=== PATIENT | male | born 1960 | race Hispanic/Latino ===

== ENCOUNTER 2021-03-25 13:28 | Inpatient (IN) | payer BC, MEDICARE ==
--- NOTE | 2021-03-25 09:32 | R.PREADM ---
PRE-ADMISSION SCREENING FORM SCREENING DATE AND TIME 03/24/2021 13:32 (CDT) ANTICIPATED REHAB ADMISSION DATE 03/26/2021 REFERRING FACILITY [facility] REFERRAL DATE AND TIME 03/23/2021 13:32 (CDT) REFERRAL ROOM# J530 ACUTE ADMIT DATE 03/20/2021 Previous Rehabilitation(s): No. ACUTE PLSQL DEVELOPER/DC RYAN Dubois REFERRING PHYSICIAN Dr Bao Alvarado REHAB FACILITY [facility] CLINICAL LIAISON Mena Moore PHYSICIAN REVIEWER Dr. Familia Zeng M.D. MR# [id number] NAME ALANIS ALBARADO ADDRESS [address] [facility] [place]ONE ZIP [id number] DATE OF 1960 AGE 61 SSN# [id number] GENDER male MARITAL STATUS RACE PREF. LANGUAGE (IF NON-SWAZI) Prydeinig, limited Chinese ADMIT FROM 02 - [facility] PRE-HOSPITAL LIVING SETTING 01 - Home (private home/apt. board/care, assisted living, long-term, transitional living) HOME TYPE AND DETAILS Type of home: single family house # of levels in the residence: 1 # of steps to enter the residence: 0 # of steps within the residence: 0 Patient lives at home independently with his . PRE-HOSPITAL LIVING WITH Family/Relatives FAMILY SUPPORT Yes PRIMARY FAMILY CONTACT NAME Baylee Albarado PRIMARY FAMILY CONTACT PHONE PRIMARY FAMILY CONTACT RELATIONSHIP Spouse IS PRIMARY FAMILY CONTACT AUTH. REP.? no 1ST EMERGENCY CONTACT Baylee Albarado 1ST CONTACT PHONE 1ST CONTACT RELATIONSHIP Spouse IS 1ST CONTACT AUTH. REP.? no PHONE 2ND CONTACT ON ADM.? 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 No ANOTHER DEMOCRAT RESPONSIBLE? 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 RISK FOR COMPLICATIONS: - N/A Hypoglycemia Managment Diabetes Management Hemipalegia - Hypertension Hemiparesis SUMMARY OF ACUTE HOSPITALIZATION: Pt. is a 61 yo Right-handed male. On 03/20/2021 Pt. presented to [facility] with sudden onset of left-side weakness. On 03/20/2021 he was admitted to [facility] with diagnosis Infarct in the right Maribel. His impairment category is Stroke 01 - Left Body (Right Brain) (01.1). Pre-morbidly, Pt. was independent/mod-I in Transfers Control, Locomotion, Self-Care, Social Cognition , Communication, and Sphincter Control; and he had good Transfers Control and Locomotion. Currently, he has deficits of Transfers Control, Safety Awareness, Locomotion, Balance, Self-Care, So cial Cognition, and Communication. Pt. is now referred to [facility] for acute in-patient rehabilitation in order to maximize patient's functional independence in activities of daily living, strength, ROM, and mobi lity. Patient has realistic goal of being discharged at assistance level 6-Shayan to reside at Home with Fam chantelle/Relatives. PAST MEDICAL HISTORY HTN Diabetes MEDICATION ALLERGIES: No Known Drug Allergies (NKDA) ENVIRONMENTAL ALLERGIES: None Known - Substance Allergies None Known - Other Allergies None Known CODE STATUS: Full code WEIGHT/HEIGHT/BMI: WEIGHT 170 lbs HEIGHT 5' 2" BMI 31.1 DIET: - Diet Type Regular - Diet - Solid Texture Regular - Diet - Liquid Texture Regular - Tube Feed N/A REVIEW OF SYSTEMS: - Gen Alert and awake Lying in bed No apparent distress Oriented to: person, time, and place - Vital Signs Vital signs stable, afebrile - CVS RRR VITAL SIGNS Temperature: 98.1 F SBP/DBP: 145/75 Pulse: 79 Resp: 20 Vital signs stable, afebrile MEDICATIONS/TREATMENT: Other- See attached MAR (Medication Administration Record). CURRENT SPHINCTER CONTROL: Pre-hospital bladder status: continent # of bladder accidents in the last 7 days prior to screenin Pre-hospital bowel status: continent # of bowel accidents in the last 7 days prior to screenin CURRENT LOCOMOTION STATUS: distance walked 25 feet DETAILED CURRENT FUNCTIONAL STATUS: - Bladder accident frequency: 7-Ind - No accidents in the past 7 days - Bowel accident frequency: 7-Ind - No accidents in the past 7 days - Walking score based on distance walked: 1(<=50ft) QI SCORES: - Self-Care A. Eating 03-Partial/moderate assistance B. Oral hygiene 03-Partial/moderate assistance C. Toileting hygiene 02-Substantial/maximal assistance E. Shower/bathe self 01-Dependent F. Upper body dressing 03-Partial/moderate assistance G. Lower body dressing 02-Substantial/maximal assistance H. Putting on/taking off footwear - Mobility A. Roll left and right 03-Partial/moderate assistance B. Sit to lying 03-Partial/moderate assistance C. Lying to sitting on side of bed 03-Partial/moderate assistance D. Sit to stand 03-Partial/moderate assistance E. Chair/svd-eb-vjjbl transfer 02-Substantial/maximal assistance F. Toilet transfer 02-Substantial/maximal assistance G. Car transfer 10-Not attempted due to environmental limitations I. Walk 10 feet 02-Substantial/maximal assistance J. Walk 50 feet with two turns 88-Not attempted due to medical condition or safety concerns K. Walk 150 feet 88-Not attempted due to medical condition or safety concerns L. Walking 10 feet on uneven surfaces 88-Not attempted due to medical condition or safety concerns M. 1 step (curb) 88-Not attempted due to medical condition or safety concerns N. 4 steps 88-Not attempted due to medical condition or safety concerns O. 12 steps 88-Not attempted due to medical condition or safety concerns P. Picking up object 88-Not attempted due to medical condition or safety concerns - Bladder and Bowel Bladder continence 0-Always continent Bowel continence 0-Always continent - Endurance Poor - Balance Poor - Safety Awareness Poor CURRENT FUNC. DEFICITS: Self-Care, Mobility, Endurance, Balance, and Safety Awareness HISTORY OF FALLS. HAS THE PATIENT HAD TWO OR MORE FALLS IN THE PAST YEAR OR ANY FALL WITH INJURY IN T HE PAST YEAR?: No PRIOR SURGERY. DID THE PATIENT HAVE MAJOR SURGERY DURING THE 100 DAYS PRIOR TO ADMISSION?: No THERAPY NOTES FROM ACUTE CARE: Attached. alanis [id number] (1).pdf SPECIAL NEEDS: - Safety Concerns Skin breakdown precautions needed due to skin breakdown risk PRECAUTIONS: - Weight Bearing Precaution WBAT left LE PATIENT NEEDS ACTIVE AND ONGOING THERAPEUTIC INTERVENTION OF MULTIPLE THERAPY DISCIPLINES, INCLUDING: - Occupational Therapy Cognitive Retraining. Visual Perceptual Training. - Dietary and Nutrition Adequate Nutrition. Nutritional Education. Nutritional Supplements. - Speech Therapy Cognitive Training. Expressive Language Skills. Memory Strategies. Receptive Language Skills. Speech Intelligibility Training. PATIENT NEEDS CLOSE MEDICAL SUPERVISION BY A REHABILITATION PHYSICIAN FOR: Coordination of Treatment Team PATIENT REQUIRES 24X7 REHAB NURSING FOR MEDICAL AND FUNCTIONAL MGT. OF THE FOLLOWING DEFICITS: Disease Management Medication Management Patient/Family Education Providing Safe Environment PATIENT REQUIRES INTENSIVE, COORDINATED INTERDISCIPLINARY APPROACH TO REHAB: Arranging Home Equipment/Services Discharge Planning Family Intervention/Training Aoc Airspace Control Officer/Case Management PATIENT REHAB POTENTIAL: Rosa ALBARADO is able and expected to receive 3 hours of individualized therapy daily on at least 5 of e very 7 days Rosa ALBARADO's prognosis for significant practical improvement within a reasonable period of time appea rs Good Expected level of measurable improvement will be of a practical value to Rosa ALBARADO's functional capa city or adaptations to impairments Has a viable Discharge Plan Medically appropriate; condition is sufficiently stable to participate in intensive rehab program DISCHARGE PLAN: - Estimated Length of Stay (days) 17. - Consensus on plan Discharge plan has not been discussed with primary caregiver. Patient/Family is in agreement with the plan. - Patient/Family Goals Return home with assistance. - Planned Living Setting Upon Discharge Home, to live with Family/Relatives. - N/A Patient is a 61 year old male that presented to [place] with L side affect. He has a history of Diab etes and HTN. He was attempting to lift an object at home when he started having a left sided facial droop and nausea. He was life-flighted to [place]. He is expected to be seen by Dr Zeng at [facility] 3 times per week, have 24 hour nursing and supervision. He will participate in at least 15 hours p er week of acute therapy. (3 hours x 5 days) We expect the patient to discharge in approximately 18 days, home with his family and will participate in outpatient therapy. RECOMMENDED CARE LEVEL: IRF RECOMMENDATION DETAILS: Recommended Admission to Comprehensive Rehabilitation Program to Increase Functional [place] SCREENER'S COMPLETENESS CONFIRMATION: - Screening Confirmation The patient data collection on this preadmission screening form is finished PHYSICIANS REVIEW AND ADMISSION DETERMINATION Admit - Based on my review of the Pre-Admission Screening results, in my medical judgment and experie nce, I concur with the findings and recommend admission to [facility], as this patient requires an IRF level of care. SIGNATURE PANEL: Asphalt Paving Foreman - [electronically] signed by Mago Rice, Garment Inspector on 03/24/2021 at 14:46 (CD T) Clinical Liaison - [electronically] signed by Mena Moore OT on 03/24/2021 at 15:07 (CDT) Physician Reviewer - [electronically] signed by Dr. Familia Zeng M.D. on 03/25/2021 at 09:32 (CDT )
[2021-03-25] MEDS ORDERED: D50W 25 GM/50 ML VIAL IV PRN ×2 (13:58→14:19)
[2021-03-25] MEDS ORDERED: GLUCAGON 1 MG/VIAL IM PRN ×2 (14:00→14:05)
[2021-03-25] MEDS: INSULIN -REGULAR HUMAN 50 UNIT/0.5 ML ML SQ SCH ×2 (16:52→20:04)
[2021-03-25] MEDS: carvediloL 3.125 MG TAB PO SCH (16:53)
[2021-03-25] MEDS: METFORMIN HCL 500 MG TAB PO SCH (16:54)
--- NOTE | 2021-03-25 18:48 | R.HP ---
HISTORY AND PHYSICAL FACILITY: [facility] ENCOUNTER DATE AND TIME: 03/25/2021 18:41 (CDT) MR#: [id number] NAME ABBY BO ADDRESS: [address] CITY: [place]IP [address] PHONE: DATE OF : 1960 AGE: 61 SSN# [id number] GENDER: Male DEXTERITY Right-handed MARITAL STATUS RACE PRE-HOSPITAL LIVING SETTING 01 - Home (private home/apt. board/care, assisted living, fdc, transitional living) PRE-HOSPITAL LIVING WITH Family/Relatives ENCOUNTER PHYSICIAN: Dr. Familia Zeng M.D. REFERRING DOCTOR: Dr Bao Alvarado DATE OF ADMISSION: 03/25/2021 18:41 (CDT) REFERRING FACILITY [facility] HOME TYPE AND DETAILS: Type of home: single family house # of levels in the residence: 1 # of steps to enter the residence: 0 # of steps within the residence: 0 Patient lives at home independently with his . ONSET DATE: 03/20/2021 PRIMARY DIAGNOSIS-RELATED SURGERIES: No surgeries related to the primary diagnosis were performed. HISTORY OF PRESENT ILLNESS (HPI): Pt. is a 61 yo Right-handed male. On 03/20/2021 Pt. presented to [facility] with sudden onset of left-side weakness. On 03/20/2021 he was admitted to [facility] with diagnosis Infarct in the right Maribel. His impairment category is Stroke 01 - Left Body (Right Brain) (01.1). Pre-morbidly, Pt. was independent/mod-I in Transfers Control, Locomotion, Self-Care, Social Cognition , Communication, and Sphincter Control; and he had good Transfers Control and Locomotion. Currently, he has deficits of Transfers Control, Safety Awareness, Locomotion, Balance, Self-Care, So cial Cognition, and Communication. Pt. is now referred to [facility] for acute in-patient rehabilitation in order to maximize patient's functional independence in activities of daily living, strength, ROM, and mobi lity. Patient has realistic goal of being discharged at assistance level 6-Shayan to reside at Home with Fam chantelle/Relatives. MEDICATION ALLERGIES: No Known Drug Allergies (NKDA) ENVIRONMENTAL ALLERGIES: None Known - Substance Allergies None Known - Other Allergies None Known PAST MEDICAL HISTORY: HTN Diabetes SOCIAL HISTORY: - Home Living Family/Relatives REVIEW OF SYSTEMS: - Gen No Chills Fatigue No Fever - Eyes No Double Vision No itchiness - ENMT No Difficulty Swallowing - CVS No Chest Discomfort No Chest Pain No Fatigue No Weight Gain - Resp No Cough No Shortness of Breath - GI Continent No Abdominal Pain No Constipation No Diarrhea - Continent No Kidney Pain No Painful Urination No Urinary Urgency - MSK No Joint Pain Muscle Cramps Stiffness - Skin No Itching No Rash No Suspicious Lesions - Neuro Coordination Difficulty No Difficulty with Concentration No Memory Loss No Seizures Weakness - Psych No Anxiety No Depression No HIV Exposure No Persistent Infections No Seasonal Allergies - Endo No Cold/Heat Intolerance No Excessive Hunger No Excessive Thirst No Excessive Urination PHYSICAL EXAM - Gen Alert and awake Lying in bed No apparent distress Oriented to: person, time, and place - Skin No breakdown Normacephalic - Eyes No abnormalities - ENMT No abnormalities - Neck No abnormalities - CVS RRR - Chest Clear - Abd + bowel sounds - GI Soft Deferred - No abnormalities - Ext no edema - MSK 3-4/5 weakness in left lower extremity. - Neuro 3-4/5 strength left lower extremity. - Psych No abnormalities VITAL SIGNS Temperature: 97.7 F SBP/DBP: 143/63 Pulse: 70 Resp: 16 NURSING: - Shower allowing shower - Bladder care per protocol - Skin care per protocol PRECAUTIONS: - Weight Bearing Precaution WBAT left LE ACTIVITIES OOB only with supervision QI SCORES: - Self-Care A. Eating 03-Partial/moderate assistance B. Oral hygiene 03-Partial/moderate assistance C. Toileting hygiene 02-Substantial/maximal assistance E. Shower/bathe self 01-Dependent F. Upper body dressing 03-Partial/moderate assistance G. Lower body dressing 02-Substantial/maximal assistance H. Putting on/taking off footwear - Mobility A. Roll left and right 03-Partial/moderate assistance B. Sit to lying 03-Partial/moderate assistance C. Lying to sitting on side of bed 03-Partial/moderate assistance D. Sit to stand 03-Partial/moderate assistance E. Chair/lkt-vy-ijgiz transfer 02-Substantial/maximal assistance F. Toilet transfer 02-Substantial/maximal assistance G. Car transfer 10-Not attempted due to environmental limitations I. Walk 10 feet 02-Substantial/maximal assistance J. Walk 50 feet with two turns 88-Not attempted due to medical condition or safety concerns K. Walk 150 feet 88-Not attempted due to medical condition or safety concerns L. Walking 10 feet on uneven surfaces 88-Not attempted due to medical condition or safety concerns M. 1 step (curb) 88-Not attempted due to medical condition or safety concerns N. 4 steps 88-Not attempted due to medical condition or safety concerns O. 12 steps 88-Not attempted due to medical condition or safety concerns P. Picking up object 88-Not attempted due to medical condition or safety concerns - Bladder and Bowel Bladder continence 0-Always continent Bowel continence 0-Always continent - Endurance Poor - Balance Poor - Safety Awareness Poor CURRENT FUNC. DEFICITS: Self-Care, Mobility, Endurance, Balance, and Safety Awareness MEDICATIONS: - Other See attached MAR (Medication Administration Record) ASSESSMENT: Pt. is a 61 yo Right-handed male.On 03/20/2021 Pt. presented to [facility] with sudd en onset of left-side weakness.On 03/20/2021 he was admitted to [facility] with diagnosis Inf arct in the right Maribel.His impairment category is Stroke 01 - Left Body (Right Brain) (01.1).Pre-mor bidly, Pt. was independent/mod-I in Transfers Control, Locomotion, Self-Care, Social Cognition, Commu nication, and Sphincter Control; and he had good Transfers Control and Locomotion.Currently, he has d eficits of Transfers Control, Safety Awareness, Locomotion, Balance, Self-Care, Social Cognition, and Communication.Pt. is now referred to [facility] for acute in-patient rehabili tation in order to maximize patient's functional independence in activities of daily living, strength , ROM, and mobility.- Rehab Goal Patient has realistic goal of being discharged at assistance level 6-Shayan to reside at Home with Fam chantelle/Relatives. REHAB PLAN: for Dementia, TBI, Stroke, or others - Physical Therapy Gait dysfunction - to improve, our physical therapists will perform initial evaluation of pt's status upon admission and devise an individualized program for Gait Training, and Wheel Chair mobility Inability to transfer - to improve, our physical therapists will perform initial evaluation of pt's s tatus upon admission and devise an individualized program for Bed mobility Need for home safety evaluation - to improve, our physical therapists will perform initial evaluation of pt's status upon admission and devise an individualized program for Home Evaluation Need in caregiver upon discharge - to improve, our physical therapists will perform initial evaluatio n of pt's status upon admission and devise an individualized program for Caregiver Training New precaution - to improve, our physical therapists will perform initial evaluation of pt's status u edel admission and devise an individualized program for Patient precaution education Poor balance - to improve, our physical therapists will perform initial evaluation of pt's status upo n admission and devise an individualized program for Balance Training Weakness - to improve, our physical therapists will perform initial evaluation of pt's status upon ad mission and devise an individualized program for Aquatic Therapy, Neuromuscular Reeducation, and Stre ngthening Achieving independence - to improve, our physical therapists will perform initial evaluation of pt's status upon admission and devise an individualized program for Community Reintegration Activities - Occupational Therapy ADL deficits - to improve, our occupation therapists will perform initial evaluation of pt's status u edel admission and devise an individualized program for Bathing, Bed mobility, Community Reintegration , Cooking, Dressing, Eating, Fine Motor Skills, Grooming, Homemaking, Kitchen Mobility, Laundry, Alena ent Education, Safety Awareness, Splinting - Positioning, Transfers(Toilet, Tub, Shower), and Wheel C hair Management Cognitive deficits - to improve, our occupation therapists will perform initial evaluation of pt's st atus upon admission and devise an individualized program for Cognition - orientation Need for menagerie caretaker - to improve, our occupation therapists will perform initial evaluation of pt's s tatus upon admission and devise an individualized program for Caregiver Training Weakness - to improve, our occupation therapists will perform initial evaluation of pt's status upon admission and devise an individualized program for Aquatic Therapy, Balance, Endurance, UE ROM, and U E strengthening MEDICAL PLAN: - Diet Type Start Regular - Diet - Liquid Texture Start Regular - Tube Feed Start N/A - Bladder care per protocol - Weight Bearing Precaution WBAT left LE - Skin care per protocol - Other See attached MAR (Medication Administration Record) - Diet - Solid Texture Regular - Shower shower DISCHARGE PLAN: - Estimated Length of Stay (days) 17. - Consensus on plan Discharge plan has not been discussed with primary caregiver. Patient/Family is in agreement with the plan. - Patient/Family Goals Return home with assistance. - Planned Living Setting Upon Discharge Home, to live with Family/Relatives. - N/A Patient is a 61 year old male that presented to [place] with L side affect. He has a history of Diab etes and HTN. He was attempting to lift an object at home when he started having a left sided facial droop and nausea. He was life-flighted to [place]. He is expected to be seen by Dr Zeng at [facility] 3 times per week, have 24 hour nursing and supervision. He will participate in at least 15 hours p er week of acute therapy. (3 hours x 5 days) We expect the patient to discharge in approximately 18 days, home with his family and will participate in outpatient therapy. SIGNATURE PANEL: (CDT)
--- NOTE | 2021-03-25 18:49 | PAPE ---
POST ADMISSION PHYSICIAN EVALUATION PATIENT: [facility] MR# [id number] REFERRING DOCTOR Dr Bao Alvarado EVALUATION DATE AND TIME 03/25/2021 18:47 (CDT) NAME ABBY BO DATE OF 1960 AGE 61 PHONE SSN# [id number] GENDER male EVALUATING PHYSICIAN Dr. Familia Zeng M.D. ADMISSION DIAGNOSIS: Infarct in the right Maribel ONSET DATE 03/20/2021 POST-ADMISSION FUNCTIONAL/MEDICAL STATUS: - Bladder Same accident frequency: 7-Ind - No accidents in the past 7 days - Bowel Same accident frequency: 7-Ind - No accidents in the past 7 days - Walking Same score based on distance walked: 1(<=50ft) STATUS CHANGE EVALUATION: No change in Functional or Medical Status is identified compared with Pre-Admission screening. PATIENT NEEDS CLOSE MEDICAL SUPERVISION BY A REHABILITATION PHYSICIAN FOR: Coordination of Treatment Team PATIENT REQUIRES 24X7 REHAB NURSING FOR MEDICAL AND FUNCTIONAL MGT. OF THE FOLLOWING DEFICITS: Disease Management Medication Management Patient/Family Education Providing Safe Environment PATIENT REQUIRES INTENSIVE, COORDINATED INTERDISCIPLINARY APPROACH TO REHAB: Arranging Home Equipment/Services Discharge Planning Family Intervention/Training Ground Water Pump Installer/Case Management LIST OF IDENTIFIED AND POTENTIAL PROBLEMS: Alteration in leisure activities Bladder, Incontinence Bowel, Incontinence Infection, Actual or Potential Mobility Impaired Pain, Alteration in Comfort Self Care Deficit Skin Integrity, Actual or Potential Urinary Tract Infection (UTI), Actual or Potential RISK FOR COMPLICATIONS - N/A Hypoglycemia Managment. Diabetes Management. Hemipalegia. - Hypertension Hemiparesis. PATIENT COULD BE AT RISK FOR COMPLICATIONS FROM ADVERSE MEDICAL CONDITIONS DUE TO HIS/HER COMORBIDITI ES AND THE RIGORS OF THE INTENSIVE REHABILLITATION PROGRAM. METHODS OR INTERVENTIONS TO AVOID COMPLIC ATIONS INCLUDE: - Bleeding Stroke patients assessed for lethargy or change in status. - Infection Clinical staff to assess and manage the signs and symptoms of infection including fever, redness, war mth, etc. - Urinary Tract Infection - Aspiration Clinical staff will assess and manage coughing, drooling, congestion. - Falls Patient will be evaluated for Fall Precautions and will be placed on Fall Precautions as indicated pe r protocol. - Skin Breakdown Nursing will assess skin daily using assessment tool and will place on Skin Breakdown Precautions as indicated per protocol. - Pain Clinical staff may employ non-medication methods such as massage, distraction, decrease stimulus, etc . as needed. Clinical staff will assess patient's pain level every shift per protocol to assess and e nsure pain management effectiveness. Medications will be given and the pain level re-assessed. PRELIMINARY PLAN OF CARE: - Physical Therapy Patient needs Physical Therapy for a daily minimum of 1.5 hours at least 5 out of 7 days, to improve: Mobility, Strengthening, Transfers, Stretching, ROM, Endurance, Ability to manage stairs, Gait, and Balance. - Speech Therapy Patient needs Speech Therapy for a daily minimum of 0.5 hours at least 5 out of 7 days, to improve: S wallowing, Cognition, Language Skills, and Compensatory Strategies. - Rehabilitation Nursing Patient requires 24x7 Rehabilitation Nursing for: Pain Issues, Identifying and preventing risk factor s, Monitoring and reporting current medical conditions, Assisting with ambulation and transfer, Kailash ting with all ADL-s, Teaching patients about disease process and medications, Family teaching, Provid ing safe environment, Bowel and Bladder Issues, Skin Integrity, and Medication Management. Patient needs Ground Water Pump Installer and/or Case Management for: Discharge Planning, Arranging Home Equipmen t or Services, and Family Interventions. - Dietary and Nutrition Services Patient needs Dietary and Nutrition Services for: Adequate Nutrition, Nutritional Supplements, and Nu tritional Education. - Occupational Therapy Patient needs Occupational Therapy for a daily minimum of 1.5 hours at least 5 out of 7 days, to impr ove Activities of Daily Living, including: Eating, Grooming, Bathing, Dressing, Toileting, Toilet Tra nsfers, Community Reintegration, Higher functional activities, Adaptive Equipment, Splinting, Househo ld Tasks, and Other activities as determined. QI SCORES: - Self-Care A. Eating 03-Partial/moderate assistance B. Oral hygiene 03-Partial/moderate assistance C. Toileting hygiene 02-Substantial/maximal assistance E. Shower/bathe self 01-Dependent F. Upper body dressing 03-Partial/moderate assistance G. Lower body dressing 02-Substantial/maximal assistance H. Putting on/taking off footwear - Mobility A. Roll left and right 03-Partial/moderate assistance B. Sit to lying 03-Partial/moderate assistance C. Lying to sitting on side of bed 03-Partial/moderate assistance D. Sit to stand 03-Partial/moderate assistance E. Chair/gca-nk-mapzi transfer 02-Substantial/maximal assistance F. Toilet transfer 02-Substantial/maximal assistance G. Car transfer 10-Not attempted due to environmental limitations I. Walk 10 feet 02-Substantial/maximal assistance J. Walk 50 feet with two turns 88-Not attempted due to medical condition or safety concerns K. Walk 150 feet 88-Not attempted due to medical condition or safety concerns L. Walking 10 feet on uneven surfaces 88-Not attempted due to medical condition or safety concerns M. 1 step (curb) 88-Not attempted due to medical condition or safety concerns N. 4 steps 88-Not attempted due to medical condition or safety concerns O. 12 steps 88-Not attempted due to medical condition or safety concerns P. Picking up object 88-Not attempted due to medical condition or safety concerns - Bladder and Bowel Bladder continence 0-Always continent Bowel continence 0-Always continent - Endurance Poor - Balance Poor - Safety Awareness Poor POTENTIAL FUNCTIONAL GOALS FOR PATIENT TO ACHIEVE BY DISCHARGE: - Safety Precaution Patient will remain free from falls or injury at time of discharge. - Bed Mobility Patient will perform bed mobility at 4-Michel level of assistance. - Transfers Patient will complete transfers from bed to chair at 4-Michel level of assistance. - Mobility Patient will ambulate 150 ft with 4-Michel level of assistance with RW. PATIENT REHAB POTENTIAL Rosa BO is able and expected to receive 3 hours of individualized therapy daily on at least 5 of e very 7 days Rosa BO's prognosis for significant practical improvement within a reasonable period of time appea rs Good Expected level of measurable improvement will be of a practical value to Rosa BO's functional capa city or adaptations to impairments Has a viable Discharge Plan Medically appropriate; condition is sufficiently stable to participate in intensive rehab program DISCHARGE PLAN: - Estimated Length of Stay (days) 17. - Consensus on plan Discharge plan has not been discussed with primary caregiver. Patient/Family is in agreement with the plan. - Patient/Family Goals Return home with assistance. - Planned Living Setting Upon Discharge Home, to live with Family/Relatives. - N/A Patient is a 61 year old male that presented to [facility] with L side affect. He has a history of Diab etes and HTN. He was attempting to lift an object at home when he started having a left sided facial droop and nausea. He was life-flighted to [facility]. [facility], have 24 hour nursing and supervision. He will participate in at least 15 hours p er week of acute therapy. (3 hours x 5 days) We expect the patient to discharge in approximately 18 days, home with his family and will participate in outpatient therapy. CONCLUSION ON REHABILITATION NECESSITY: I have evaluated patient's pre-admission functional status and, comparing it to the patient's post-ad mission functional status now, I conclude that the pre-admission assessment was accurate. Patient's c ondition on admission supports the medical necessity of admission to [facility]. It is safe to proceed with patient's therapy program. SIGNATURE PANEL: (CDT)
[2021-03-25] MEDS: NPH (HUMAN) 100 UNITS/ML INSULIN SQ SCH (20:00)
[2021-03-25] MEDS ORDERED: INSULIN ISOPHANE SQ SCH (20:00)
[2021-03-25] MEDS ORDERED: SENOSIDES 8.6 MG TAB PO SCH (20:00)
[2021-03-25] MEDS: POLYETHYL GLY 3350 17 GM/DOSE PO SCH (20:02)
[2021-03-25] MEDS: lisinopriL 20 MG TAB PO SCH (20:03)
[2021-03-25] MEDS: ATORVASTATIN 80 MG TAB PO SCH (20:04)
[2021-03-25] MEDS: APIXABAN 5 MG TABLET PO SCH (20:04)
[2021-03-25] MEDS: MELATONIN 3 MG TABLET PO PRN (20:05)
[2021-03-26] MEDS: carvediloL 3.125 MG TAB PO SCH ×2 (05:38→17:49)
[2021-03-26 06:30] LABS: Absolute Lymphocytes (CBC) 2.5 K/uL (0.7-4.9); Basophils % 0.5 % (0-1.3); Hematocrit 34.9 % (39.6-49.0); Lymphocytes % 26.9 % (15.3-44.8); MPV 8.7 fL (7.6-11.3)
[2021-03-26 06:49] LABS: Albumin 2.6 g/dL (3.4-5.0); BUN Blood Urea Nitrogen 28 mg/dL (7-18); Bicarbonate 27 mmol/L (21-32); Glucose Level 154 mg/dL (74-106); Magnesium 2.3 mg/dL (1.8-2.4); Potassium 4.4 mmol/L (3.5-5.1); Prealbumin 16.7 mg/dL (20-40); Sodium Level 140 mmol/L (136-145)
[2021-03-26] MEDS: INSULIN -REGULAR HUMAN 50 UNIT/0.5 ML ML SQ SCH ×4 (07:30→19:31)
[2021-03-26] MEDS: POLYETHYL GLY 3350 17 GM/DOSE PO SCH ×3 (08:00→20:00)
[2021-03-26] MEDS: METFORMIN HCL 500 MG TAB PO SCH ×2 (08:39→17:48)
[2021-03-26] MEDS: APIXABAN 5 MG TABLET PO SCH ×2 (08:40→19:59)
[2021-03-26] MEDS: NPH (HUMAN) 100 UNITS/ML INSULIN SQ SCH ×2 (08:40→19:59)
[2021-03-26] MEDS: lisinopriL 20 MG TAB PO SCH ×2 (11:34→20:00)
[2021-03-26 17:12] LABS: Urine Appearance CLEAR (Clear); Urine Bilirubin NEGATIVE (Negative); Urine Blood NEGATIVE (Negative); Urine Color YELLOW (Yellow); Urine Glucose TRACE (Negative); Urine Protein 1+ (Negative)
[2021-03-26 18:03] LABS: Urine Bacteria <20 /HPF (NONE SEEN); Urine Mucus LIGHT /HPF (NONE SEEN); Urine RBC NONE SEEN /HPF (NONE SEEN)
[2021-03-26] MEDS: ATORVASTATIN 80 MG TAB PO SCH (19:59)
[2021-03-26] MEDS: MELATONIN 3 MG TABLET PO PRN (19:59)
[2021-03-26] MEDS: cloNIDine HCL 0.1 MG TAB PO PRN (19:59)
[2021-03-27] MEDS: carvediloL 3.125 MG TAB PO SCH ×2 (05:00→16:21)
[2021-03-27] MEDS: INSULIN -REGULAR HUMAN 50 UNIT/0.5 ML ML SQ SCH ×4 (07:30→20:45)
[2021-03-27] MEDS: POLYETHYL GLY 3350 17 GM/DOSE PO SCH ×2 (08:00→20:00)
[2021-03-27] MEDS: METFORMIN HCL 500 MG TAB PO SCH ×2 (08:32→16:20)
[2021-03-27] MEDS: APIXABAN 5 MG TABLET PO SCH ×2 (08:32→20:44)
[2021-03-27] MEDS: NPH (HUMAN) 100 UNITS/ML INSULIN SQ SCH ×2 (08:33→20:45)
[2021-03-27] MEDS: lisinopriL 20 MG TAB PO SCH ×2 (09:37→20:44)
[2021-03-27] MEDS: ATORVASTATIN 80 MG TAB PO SCH (20:45)
[2021-03-27] MEDS: MELATONIN 3 MG TABLET PO PRN (20:46)
[2021-03-28] MEDS: carvediloL 3.125 MG TAB PO SCH ×2 (05:03→16:26)
[2021-03-28] MEDS ORDERED: POLYETHYL GLY 3350 17 GM/DOSE PO PRN (06:42)
[2021-03-28] MEDS: INSULIN -REGULAR HUMAN 50 UNIT/0.5 ML ML SQ SCH ×4 (07:30→20:52)
[2021-03-28] MEDS: ONDANSETRON 4 MG (ODT) TAB PO PRN ×2 (08:18→12:39)
[2021-03-28] MEDS: lisinopriL 20 MG TAB PO SCH ×2 (08:18→20:51)
[2021-03-28] MEDS: FAMOTIDINE 20 MG TAB PO SCH (08:18)
[2021-03-28] MEDS: METFORMIN HCL 500 MG TAB PO SCH ×2 (08:18→16:27)
[2021-03-28] MEDS: APIXABAN 5 MG TABLET PO SCH ×2 (08:18→20:51)
[2021-03-28] MEDS: NPH (HUMAN) 100 UNITS/ML INSULIN SQ SCH ×2 (08:19→20:52)
[2021-03-28] MEDS ORDERED: ONDANSETRON 4 MG (ODT) TAB PO PRN (12:38)
--- NOTE | 2021-03-28 15:50 | FAST ---
[employer] FORM SHIFT START DATE/TIME: 03/28/2021 07:00 (CDT) SHIFT END DATE/TIME: 03/28/2021 19:00 (CDT) NAME ABBY BO DATE OF : 1960 DATE OF ADMISSION: 03/25/2021 18:41 (CDT) PHONE: AGE: 61 N# [id number] GENDER: Male ENCOUNTER PHYSICIAN: Dr. Familia Zeng M.D. ADMISSION DIAGNOSIS: - Stroke 01 - Left Body (Right Brain) (01.1) Infarct in the right Maribel. EATING: EATING - STEP 1: Does the patient complete the activity by him/herself with no assistance (physical, verbal/nonverbal cueing, setup/clean-up)? No. EATING - STEP 2: Does the patient need only setup/clean-up assistance from one helper? Yes. 1. [id number] ADMISSION PERFORMANCE: Setup or clean-up assistance CODE: 05 ORAL HYGIENE: ORAL HYGIENE - STEP 1: Does the patient complete the activity by him/herself with no assistance (physical, verbal/nonverbal cueing, setup/clean-up)? No. ORAL HYGIENE - STEP 2: Does the patient need only setup/clean-up assistance from one helper? Yes. 1. [id number] ADMISSION PERFORMANCE: Setup or clean-up assistance CODE: 05 TOILETING HYGIENE: TOILETING HYGIENE - STEP 1: Does the patient complete the activity by him/herself with no assistance (physical, verbal/nonverbal cueing, setup/clean-up)? No. TOILETING HYGIENE - STEP 2: Does the patient need only setup/clean-up assistance from one helper? No. TOILETING HYGIENE - STEP 3: Does the patient need only verbal/nonverbal cueing or touching/steadying/contact guard assistance fro m one helper? Yes. 1. [id number] ADMISSION PERFORMANCE: Supervision or touching assistance CODE: 04 BATHING: Not assessed/no information CODE: - DRESSING - UPPER BODY: Not assessed/no information CODE: - DRESSING - LOWER BODY: Not assessed/no information CODE: - PUTTING ON/TAKING OFF FOOTWEAR: Not assessed/no information CODE: - ROLL LEFT AND RIGHT: ROLL LEFT AND RIGHT - STEP 1: Does the patient complete the activity by him/herself with no assistance (physical, verbal/nonverbal cueing, setup/clean-up)? No. ROLL LEFT AND RIGHT - STEP 2: Does the patient need only setup/clean-up assistance from one helper? No. ROLL LEFT AND RIGHT - STEP 3: Does the patient need only verbal/nonverbal cueing or touching/steadying/contact guard assistance fro m one helper? Yes. 1. [id number] ADMISSION PERFORMANCE: Supervision or touching assistance CODE: 04 SIT TO LYING: SIT TO LYING - STEP 1: Does the patient complete the activity by him/herself with no assistance (physical, verbal/nonverbal cueing, setup/clean-up)? No. SIT TO LYING - STEP 2: Does the patient need only setup/clean-up assistance from one helper? Yes. 1. [id number] ADMISSION PERFORMANCE: Setup or clean-up assistance CODE: 05 LYING TO SITTING: LYING TO SITTING ON SIDE OF BED - STEP 1: Does the patient complete the activity by him/herself with no assistance (physical, verbal/nonverbal cueing, setup/clean-up)? No. LYING TO SITTING ON SIDE OF BED - STEP 2: Does the patient need only setup/clean-up assistance from one helper? Yes. 1. [id number] ADMISSION PERFORMANCE: Setup or clean-up assistance CODE: 05 SIT TO STAND: SIT TO STAND - STEP 1: Does the patient complete the activity by him/herself with no assistance (physical, verbal/nonverbal cueing, setup/clean-up)? No. SIT TO STAND - STEP 2: Does the patient need only setup/clean-up assistance from one helper? Yes. 1. [id number] ADMISSION PERFORMANCE: Setup or clean-up assistance CODE: 05 TRANSFERS: BED, CHAIR: CHAIR/[id number] TRANSFER - STEP 1: Does the patient complete the activity by him/herself with no assistance (physical, verbal/nonverbal cueing, setup/clean-up)? No. CHAIR/[id number] TRANSFER - STEP 2: Does the patient need only setup/clean-up assistance from one helper? Yes. 1. [id number] ADMISSION PERFORMANCE: Setup or clean-up assistance CODE: 05 TRANSFER TOILET: TOILET TRANSFER - STEP 1: Does the patient complete the activity by him/herself with no assistance (physical, verbal/nonverbal cueing, setup/clean-up)? No. TOILET TRANSFER - STEP 2: Does the patient need only setup/clean-up assistance from one helper? Yes. 1. [id number] ADMISSION PERFORMANCE: Setup or clean-up assistance CODE: 05 TRANSFERS: CAR: Not assessed/no information CODE: - WALK 10 FEET: Not assessed/no information CODE: - 1 STEP (CURB): Not assessed/no information CODE: - PICKING UP OBJECT: Not assessed/no information CODE: - DOES THE PATIENT USE A WHEELCHAIR/SCOOTER? Q1. DOES THE PATIENT USE A WHEELCHAIR/SCOOTER?: Yes CODE: 1 WHEEL 50 FEET WITH TWO TURNS: Not assessed/no information CODE: - INDICATE THE TYPE OF WHEELCHAIR/SCOOTER USED: RR1. INDICATE THE TYPE OF WHEELCHAIR/SCOOTER USED.: Manual CODE: 1 WHEEL 150 FEET: WHEEL 150 FEET - STEP 1: Does the patient complete the activity by him/herself with no assistance (physical, verbal/nonverbal cueing, setup/clean-up)? No. WHEEL 150 FEET - STEP 2: Does the patient need only setup/clean-up assistance from one helper? No. WHEEL 150 FEET - STEP 3: Does the patient need only verbal/nonverbal cueing or touching/steadying/contact guard assistance fro m one helper? Yes. 1. [id number] ADMISSION PERFORMANCE: Supervision or touching assistance CODE: 04 INDICATE THE TYPE OF WHEELCHAIR/SCOOTER USED: SS1. INDICATE THE TYPE OF WHEELCHAIR/SCOOTER USED.: Manual CODE: 1 BLADDER AND BOWEL: H350. BLADDER CONTINENCE (3-DAY ASSESSMENT PERIOD): Always continent (no documented incontinence) CODE: 0 H400. BOWEL CONTINENCE (3-DAY ASSESSMENT PERIOD): Always continent CODE: 0 SIGNATURE PANEL: The following modified sections: 1. [id number] Admission Performance, 1. [id number] Admission Performance, 1. [id number] Admission Performance, 1. [id number] Admission Performance, 1. [id number] Admission Performance, 1. [id number] Admission Performance, 1. [id number] Admission Performance, 1. [id number] Admission Performance , 1. [id number] Admission Performance, 1. [id number] Admission Performance, 1. [id number] Admission Performanc e, 1. [id number] Admission Performance, Q1. Does the patient use a wheelchair/scooter?, Q1. Does the pat ient use a wheelchair/scooter?, RR1. Indicate the type of wheelchair/scooter used., 1. [id number] Admiss ion Performance, Code, SS1. Indicate the type of wheelchair/scooter used., H350. Bladder Continence ( 3-day assessment period), H400. Bowel Continence (3-day assessment period) were [electronically] sign ed by Lucia Engle C.N.A. on MonMar 28 2021 15:49:59 GMT-0500 (Central Daylight Time)
[2021-03-28] MEDS: ATORVASTATIN 80 MG TAB PO SCH (20:51)
[2021-03-28] MEDS: MELATONIN 3 MG TABLET PO PRN (20:52)
[2021-03-29] MEDS: carvediloL 3.125 MG TAB PO SCH ×2 (05:07→17:13)
[2021-03-29] MEDS: INSULIN -REGULAR HUMAN 50 UNIT/0.5 ML ML SQ SCH ×4 (07:30→21:00)
[2021-03-29] MEDS: NPH (HUMAN) 100 UNITS/ML INSULIN SQ SCH ×2 (07:42→20:00)
[2021-03-29] MEDS: FAMOTIDINE 20 MG TAB PO SCH (07:43)
[2021-03-29] MEDS: METFORMIN HCL 500 MG TAB PO SCH ×2 (07:43→17:13)
[2021-03-29] MEDS: lisinopriL 20 MG TAB PO SCH ×2 (07:43→21:10)
[2021-03-29] MEDS: APIXABAN 5 MG TABLET PO SCH ×2 (07:44→21:09)
--- NOTE | 2021-03-29 17:23 | R.PN ---
PROGRESS NOTES ENCOUNTER DATE AND TIME: 03/29/2021 17:17 (CDT) NAME ABBY BO DATE OF : 1960 DATE OF ADMISSION: 03/25/2021 18:41 (CDT) Infarct in the right PonsCHIEF COMPLAINT: Right pontine stroke SUBJECTIVE: Pt denied any depression. Pt denied any Shortness of Breath. CBC with differential is essentially normal. Glucose 121 to 176. UA is normal. Ambulated 70' with maximum assistance using a rolling walker. VITAL SIGNS Temperature: 98.9 F SBP/DBP: 143/73 Pulse: 78 Resp: 16 MEDICATION ALLERGIES: No Known Drug Allergies (NKDA) ENVIRONMENTAL ALLERGIES: None Known - Substance Allergies None Known - Other Allergies None Known NURSING: - Shower allowing shower - Bladder care per protocol - Skin care per protocol PRECAUTIONS: - Weight Bearing Precaution WBAT left LE ACTIVITIES OOB only with supervision THERAPIES: - Occupational Therapy Cognitive Retraining. Visual Perceptual Training. - Dietary and Nutrition Adequate Nutrition. Nutritional Education. Nutritional Supplements. - Speech Therapy Cognitive Training. Expressive Language Skills. Memory Strategies. Receptive Language Skills. Speech Intelligibility Training. PHYSICAL EXAM - Gen Alert and awake Lying in bed No apparent distress Oriented to: person, time, and place - Skin No breakdown Normacephalic - Eyes No abnormalities - ENMT No abnormalities - Neck No abnormalities - CVS RRR - Chest Clear - Abd + bowel sounds - GI Soft Deferred - No abnormalities - Ext no edema - MSK 3-4/5 weakness in left lower extremity. - Neuro 3-4/5 strength left lower extremity. - Psych No abnormalities ASSESSMENT: Pt. is a 61 yo Right-handed male.On 03/20/2021 Pt. presented to [facility] with sudd en onset of left-side weakness.On 03/20/2021 he was admitted to [facility] with diagnosis Inf arct in the right Maribel.His impairment category is Stroke 01 - Left Body (Right Brain) (01.1).Pre-mor bidly, Pt. was independent/mod-I in Transfers Control, Locomotion, Self-Care, Social Cognition, Commu nication, and Sphincter Control; and he had good Transfers Control and Locomotion.Currently, he has d eficits of Transfers Control, Safety Awareness, Locomotion, Balance, Self-Care, Social Cognition, and Communication.Pt. is now referred to [facility] for acute in-patient rehabili tation in order to maximize patient's functional independence in activities of daily living, strength , ROM, and mobility.- Rehab Goal Patient has realistic goal of being discharged at assistance level 6-Shayan to reside at Home with Fam chantelle/Relatives. MDM/PLAN: - Physical Therapy Gait dysfunction - to improve, our physical therapists will perform initial evaluation of pt's statu s upon admission and devise an individualized program for Gait Training, and Wheel Chair mobility Inability to transfer - to improve, our physical therapists will perform initial evaluation of pt's status upon admission and devise an individualized program for Bed mobility Need for home safety evaluation - to improve, our physical therapists will perform initial evaluatio n of pt's status upon admission and devise an individualized program for Home Evaluation Need in caregiver upon discharge - to improve, our physical therapists will perform initial evaluati on of pt's status upon admission and devise an individualized program for Caregiver Training New precaution - to improve, our physical therapists will perform initial evaluation of pt's status upon admission and devise an individualized program for Patient precaution education Poor balance - to improve, our physical therapists will perform initial evaluation of pt's status up on admission and devise an individualized program for Balance Training Weakness - to improve, our physical therapists will perform initial evaluation of pt's status upon a dmission and devise an individualized program for Aquatic Therapy, Neuromuscular Reeducation, and Str engthening Achieving independence - to improve, our physical therapists will perform initial evaluation of pt's status upon admission and devise an individualized program for Community Reintegration Activities - Occupational Therapy ADL deficits - to improve, our occupation therapists will perform initial evaluation of pt's status upon admission and devise an individualized program for Bathing, Bed mobility, Community Reintegratio n, Cooking, Dressing, Eating, Fine Motor Skills, Grooming, Homemaking, Kitchen Mobility, Laundry, Pat ient Education, Safety Awareness, Splinting - Positioning, Transfers(Toilet, Tub, Shower), and Wheel Chair Management Cognitive deficits - to improve, our occupation therapists will perform initial evaluation of pt's s tatus upon admission and devise an individualized program for Cognition - orientation Need for point of care technician - to improve, our occupation therapists will perform initial evaluation of pt's status upon admission and devise an individualized program for Caregiver Training Weakness - to improve, our occupation therapists will perform initial evaluation of pt's status upon admission and devise an individualized program for Aquatic Therapy, Balance, Endurance, UE ROM, and UE strengthening - Other See attached MAR (Medication Administration Record) - Diet Type Continue Regular - Diet - Liquid Texture Continue Regular - Tube Feed Continue N/A - Bladder care per protocol - Weight Bearing Precaution WBAT left LE - Skin care per protocol - Diet - Solid Texture Continue Regular - Shower allowing shower for Dementia, TBI, Stroke, or others FUNCTIONAL STATUS: UPDATED AT WEEKLY TEAM CONFERENCE - Bladder Same accident frequency: 7-Ind - No accidents in the past 7 days - Bowel Same accident frequency: 7-Ind - No accidents in the past 7 days - Walking Same score based on distance walked: 1(<=50ft) FUNCTIONAL STATUS: - Self-Care A. Eating Shayan B. Grooming Michel C. Bathing modA D. Dressing - Upper Michel E. Dressing - Lower modA F. Toileting modA - Sphincter Control G. Bladder control sup H. Bowel control Shayan - Transfers Control I. Bed/Chair/Wheelchair modA J. Toilet Michel K. Tub/Shower modA - Locomotion L. Walk/Wheelchair (B) modA M. Stairs maxA - Communication N. Comprehension (B) sup O. Expression (B) sup - Social Cognition P. Social Interaction Shayan Q. Problem Solving modA R. Memory Michel - Endurance Fair - Balance Poor - Safety Awareness Poor QI SCORES: - Self-Care A. Eating 03-Partial/moderate assistance B. Oral hygiene 03-Partial/moderate assistance C. Toileting hygiene 02-Substantial/maximal assistance E. Shower/bathe self 01-Dependent F. Upper body dressing 03-Partial/moderate assistance G. Lower body dressing 02-Substantial/maximal assistance H. Putting on/taking off footwear - Mobility A. Roll left and right 03-Partial/moderate assistance B. Sit to lying 03-Partial/moderate assistance C. Lying to sitting on side of bed 03-Partial/moderate assistance D. Sit to stand 03-Partial/moderate assistance E. Chair/rcz-lc-doyyd transfer 02-Substantial/maximal assistance F. Toilet transfer 02-Substantial/maximal assistance G. Car transfer 10-Not attempted due to environmental limitations I. Walk 10 feet 02-Substantial/maximal assistance J. Walk 50 feet with two turns 88-Not attempted due to medical condition or safety concerns K. Walk 150 feet 88-Not attempted due to medical condition or safety concerns L. Walking 10 feet on uneven surfaces 88-Not attempted due to medical condition or safety concerns M. 1 step (curb) 88-Not attempted due to medical condition or safety concerns N. 4 steps 88-Not attempted due to medical condition or safety concerns O. 12 steps 88-Not attempted due to medical condition or safety concerns P. Picking up object 88-Not attempted due to medical condition or safety concerns - Bladder and Bowel Bladder continence 0-Always continent Bowel continence 0-Always continent - Endurance Poor - Balance Poor - Safety Awareness Poor CURRENT FUNC. DEFICITS: Self-Care, Mobility, Endurance, Balance, and Safety Awareness SIGNATURE PANEL: (CDT)
[2021-03-29] MEDS: ATORVASTATIN 80 MG TAB PO SCH (21:07)
[2021-03-29] MEDS: MELATONIN 3 MG TABLET PO PRN (21:08)
[2021-03-29] MEDS: ACETAMINOPHEN 325 MG TABLET PO PRN (21:08)
[2021-03-30] MEDS: carvediloL 3.125 MG TAB PO SCH ×2 (05:29→18:31)
[2021-03-30] MEDS: INSULIN -REGULAR HUMAN 50 UNIT/0.5 ML ML SQ SCH ×4 (07:30→19:46)
[2021-03-30] MEDS: NPH (HUMAN) 100 UNITS/ML INSULIN SQ SCH ×2 (07:47→19:45)
[2021-03-30] MEDS: lisinopriL 20 MG TAB PO SCH ×2 (07:48→19:44)
[2021-03-30] MEDS: FAMOTIDINE 20 MG TAB PO SCH (07:48)
[2021-03-30] MEDS: APIXABAN 5 MG TABLET PO SCH ×2 (07:48→19:45)
[2021-03-30] MEDS: METFORMIN HCL 500 MG TAB PO SCH ×2 (07:49→16:29)
--- NOTE | 2021-03-30 18:35 | R.PN ---
PROGRESS NOTES ENCOUNTER DATE AND TIME: 03/30/2021 18:31 (CDT) NAME ABBY BO DATE OF : 1960 DATE OF ADMISSION: 03/25/2021 18:41 (CDT) Infarct in the right PonsCHIEF COMPLAINT: Right pontine stroke SUBJECTIVE: Pt denied any depression. Pt denied any Shortness of Breath. CBC with differential is essentially normal. Glucose 82 to 198. UA is normal. Ambulated 80' with moderate assistance using a rolling walker. Self-propelled wheelchair 250' with st andby assistance. VITAL SIGNS Temperature: 97.6 F SBP/DBP: 147/75 Pulse: 66 Resp: 14 MEDICATION ALLERGIES: No Known Drug Allergies (NKDA) ENVIRONMENTAL ALLERGIES: None Known - Substance Allergies None Known - Other Allergies None Known NURSING: - Shower allowing shower - Bladder care per protocol - Skin care per protocol PRECAUTIONS: - Weight Bearing Precaution WBAT left LE ACTIVITIES OOB only with supervision THERAPIES: - Occupational Therapy Cognitive Retraining. Visual Perceptual Training. - Dietary and Nutrition Adequate Nutrition. Nutritional Education. Nutritional Supplements. - Speech Therapy Cognitive Training. Expressive Language Skills. Memory Strategies. Receptive Language Skills. Speech Intelligibility Training. PHYSICAL EXAM - Gen Alert and awake Lying in bed No apparent distress Oriented to: person, time, and place - Skin No breakdown Normacephalic - Eyes No abnormalities - ENMT No abnormalities - Neck No abnormalities - CVS RRR - Chest Clear - Abd + bowel sounds - GI Soft Deferred - No abnormalities - Ext no edema - MSK 3-4/5 weakness in left lower extremity. - Neuro 3-4/5 strength left lower extremity. - Psych No abnormalities ASSESSMENT: Pt. is a 61 yo Right-handed male.On 03/20/2021 Pt. presented to [facility] with sudd en onset of left-side weakness.On 03/20/2021 he was admitted to [facility] with diagnosis Inf arct in the right Maribel.His impairment category is Stroke 01 - Left Body (Right Brain) (01.1).Pre-mor bidly, Pt. was independent/mod-I in Transfers Control, Locomotion, Self-Care, Social Cognition, Commu nication, and Sphincter Control; and he had good Transfers Control and Locomotion.Currently, he has d eficits of Transfers Control, Safety Awareness, Locomotion, Balance, Self-Care, Social Cognition, and Communication.Pt. is now referred to [facility] for acute in-patient rehabili tation in order to maximize patient's functional independence in activities of daily living, strength , ROM, and mobility.- Rehab Goal Patient has realistic goal of being discharged at assistance level 6-Shayan to reside at Home with Fam chantelle/Relatives. MDM/PLAN: - Physical Therapy Gait dysfunction - to improve, our physical therapists will perform initial evaluation of pt's statu s upon admission and devise an individualized program for Gait Training, and Wheel Chair mobility Inability to transfer - to improve, our physical therapists will perform initial evaluation of pt's status upon admission and devise an individualized program for Bed mobility Need for home safety evaluation - to improve, our physical therapists will perform initial evaluatio n of pt's status upon admission and devise an individualized program for Home Evaluation Need in caregiver upon discharge - to improve, our physical therapists will perform initial evaluati on of pt's status upon admission and devise an individualized program for Caregiver Training New precaution - to improve, our physical therapists will perform initial evaluation of pt's status upon admission and devise an individualized program for Patient precaution education Poor balance - to improve, our physical therapists will perform initial evaluation of pt's status up on admission and devise an individualized program for Balance Training Weakness - to improve, our physical therapists will perform initial evaluation of pt's status upon a dmission and devise an individualized program for Aquatic Therapy, Neuromuscular Reeducation, and Str engthening Achieving independence - to improve, our physical therapists will perform initial evaluation of pt's status upon admission and devise an individualized program for Community Reintegration Activities - Occupational Therapy ADL deficits - to improve, our occupation therapists will perform initial evaluation of pt's status upon admission and devise an individualized program for Bathing, Bed mobility, Community Reintegratio n, Cooking, Dressing, Eating, Fine Motor Skills, Grooming, Homemaking, Kitchen Mobility, Laundry, Pat ient Education, Safety Awareness, Splinting - Positioning, Transfers(Toilet, Tub, Shower), and Wheel Chair Management Cognitive deficits - to improve, our occupation therapists will perform initial evaluation of pt's s tatus upon admission and devise an individualized program for Cognition - orientation Need for grounds caretaker - to improve, our occupation therapists will perform initial evaluation of pt's status upon admission and devise an individualized program for Caregiver Training Weakness - to improve, our occupation therapists will perform initial evaluation of pt's status upon admission and devise an individualized program for Aquatic Therapy, Balance, Endurance, UE ROM, and UE strengthening - Other See attached MAR (Medication Administration Record) - Diet Type Continue Regular - Diet - Liquid Texture Continue Regular - Tube Feed Continue N/A - Bladder care per protocol - Weight Bearing Precaution WBAT left LE - Skin care per protocol - Diet - Solid Texture Continue Regular - Shower allowing shower for Dementia, TBI, Stroke, or others FUNCTIONAL STATUS: UPDATED AT WEEKLY TEAM CONFERENCE - Bladder Same accident frequency: 7-Ind - No accidents in the past 7 days - Bowel Same accident frequency: 7-Ind - No accidents in the past 7 days - Walking Same score based on distance walked: 1(<=50ft) FUNCTIONAL STATUS: - Self-Care A. Eating Shayan B. Grooming Michel C. Bathing modA D. Dressing - Upper Michel E. Dressing - Lower modA F. Toileting modA - Sphincter Control G. Bladder control sup H. Bowel control Shayan - Transfers Control I. Bed/Chair/Wheelchair modA J. Toilet Michel K. Tub/Shower modA - Locomotion L. Walk/Wheelchair (B) modA M. Stairs maxA - Communication N. Comprehension (B) sup O. Expression (B) sup - Social Cognition P. Social Interaction Shayan Q. Problem Solving modA R. Memory Michel - Endurance Fair - Balance Poor - Safety Awareness Poor QI SCORES: - Self-Care A. Eating 03-Partial/moderate assistance B. Oral hygiene 03-Partial/moderate assistance C. Toileting hygiene 02-Substantial/maximal assistance E. Shower/bathe self 01-Dependent F. Upper body dressing 03-Partial/moderate assistance G. Lower body dressing 02-Substantial/maximal assistance H. Putting on/taking off footwear - Mobility A. Roll left and right 03-Partial/moderate assistance B. Sit to lying 03-Partial/moderate assistance C. Lying to sitting on side of bed 03-Partial/moderate assistance D. Sit to stand 03-Partial/moderate assistance E. Chair/[id number] transfer 02-Substantial/maximal assistance F. Toilet transfer 02-Substantial/maximal assistance G. Car transfer 10-Not attempted due to environmental limitations I. Walk 10 feet 02-Substantial/maximal assistance J. Walk 50 feet with two turns 88-Not attempted due to medical condition or safety concerns K. Walk 150 feet 88-Not attempted due to medical condition or safety concerns L. Walking 10 feet on uneven surfaces 88-Not attempted due to medical condition or safety concerns M. 1 step (curb) 88-Not attempted due to medical condition or safety concerns N. 4 steps 88-Not attempted due to medical condition or safety concerns O. 12 steps 88-Not attempted due to medical condition or safety concerns P. Picking up object 88-Not attempted due to medical condition or safety concerns - Bladder and Bowel Bladder continence 0-Always continent Bowel continence 0-Always continent - Endurance Poor - Balance Poor - Safety Awareness Poor CURRENT FUNC. DEFICITS: Self-Care, Mobility, Endurance, Balance, and Safety Awareness SIGNATURE PANEL: (CDT)
[2021-03-30] MEDS: MELATONIN 3 MG TABLET PO PRN (19:45)
[2021-03-30] MEDS: SMZ./TMP. 800/160 MG TABLET PO SCH (19:45)
[2021-03-30] MEDS: ACETAMINOPHEN 325 MG TABLET PO PRN (19:45)
[2021-03-30] MEDS: ATORVASTATIN 80 MG TAB PO SCH (19:46)
[2021-03-31] MEDS: carvediloL 3.125 MG TAB PO SCH ×2 (05:21→16:51)
[2021-03-31] MEDS: lisinopriL 20 MG TAB PO SCH ×2 (07:25→22:22)
[2021-03-31] MEDS: INSULIN -REGULAR HUMAN 50 UNIT/0.5 ML ML SQ SCH ×4 (07:30→22:24)
[2021-03-31] MEDS: NPH (HUMAN) 100 UNITS/ML INSULIN SQ SCH ×2 (07:47→22:23)
[2021-03-31] MEDS: APIXABAN 5 MG TABLET PO SCH ×2 (07:48→22:23)
[2021-03-31] MEDS: SMZ./TMP. 800/160 MG TABLET PO SCH ×2 (07:48→22:22)
[2021-03-31] MEDS: FAMOTIDINE 20 MG TAB PO SCH (07:48)
[2021-03-31] MEDS: METFORMIN HCL 500 MG TAB PO SCH ×2 (07:48→16:51)
--- NOTE | 2021-03-31 19:01 | R.PN ---
PROGRESS NOTES ENCOUNTER DATE AND TIME: 03/31/2021 18:57 (CDT) NAME ABBY BO DATE OF : 1960 DATE OF ADMISSION: 03/25/2021 18:41 (CDT) Infarct in the right PonsCHIEF COMPLAINT: Right pontine stroke SUBJECTIVE: Pt denied any depression. Pt denied any Shortness of Breath. CBC with differential is essentially normal. Glucose 139 to 228. UA is normal. Ambulated 125' with contact assistance using a rolling walker. VITAL SIGNS Temperature: 99.6 F SBP/DBP: 152/68 Pulse: 80 Resp: 16 MEDICATION ALLERGIES: No Known Drug Allergies (NKDA) ENVIRONMENTAL ALLERGIES: None Known - Substance Allergies None Known - Other Allergies None Known NURSING: - Shower allowing shower - Bladder care per protocol - Skin care per protocol PRECAUTIONS: - Weight Bearing Precaution WBAT left LE ACTIVITIES OOB only with supervision THERAPIES: - Occupational Therapy Cognitive Retraining. Visual Perceptual Training. - Dietary and Nutrition Adequate Nutrition. Nutritional Education. Nutritional Supplements. - Speech Therapy Cognitive Training. Expressive Language Skills. Memory Strategies. Receptive Language Skills. Speech Intelligibility Training. PHYSICAL EXAM - Gen Alert and awake Lying in bed No apparent distress Oriented to: person, time, and place - Skin No breakdown Normacephalic - Eyes No abnormalities - ENMT No abnormalities - Neck No abnormalities - CVS RRR - Chest Clear - Abd + bowel sounds - GI Soft Deferred - No abnormalities - Ext no edema - MSK 3-4/5 weakness in left lower extremity. - Neuro 3-4/5 strength left lower extremity. - Psych No abnormalities ASSESSMENT: Pt. is a 61 yo Right-handed male.On 03/20/2021 Pt. presented to [facility] with sudd en onset of left-side weakness.On 03/20/2021 he was admitted to [facility] with diagnosis Inf arct in the right Maribel.His impairment category is Stroke 01 - Left Body (Right Brain) (01.1).Pre-mor bidly, Pt. was independent/mod-I in Transfers Control, Locomotion, Self-Care, Social Cognition, Commu nication, and Sphincter Control; and he had good Transfers Control and Locomotion.Currently, he has d eficits of Transfers Control, Safety Awareness, Locomotion, Balance, Self-Care, Social Cognition, and Communication.Pt. is now referred to [facility] for acute in-patient rehabili tation in order to maximize patient's functional independence in activities of daily living, strength , ROM, and mobility.- Rehab Goal Patient has realistic goal of being discharged at assistance level 6-Shayan to reside at Home with Fam chantelle/Relatives. MDM/PLAN: - Physical Therapy Gait dysfunction - to improve, our physical therapists will perform initial evaluation of pt's statu s upon admission and devise an individualized program for Gait Training, and Wheel Chair mobility Inability to transfer - to improve, our physical therapists will perform initial evaluation of pt's status upon admission and devise an individualized program for Bed mobility Need for home safety evaluation - to improve, our physical therapists will perform initial evaluatio n of pt's status upon admission and devise an individualized program for Home Evaluation Need in caregiver upon discharge - to improve, our physical therapists will perform initial evaluati on of pt's status upon admission and devise an individualized program for Caregiver Training New precaution - to improve, our physical therapists will perform initial evaluation of pt's status upon admission and devise an individualized program for Patient precaution education Poor balance - to improve, our physical therapists will perform initial evaluation of pt's status up on admission and devise an individualized program for Balance Training Weakness - to improve, our physical therapists will perform initial evaluation of pt's status upon a dmission and devise an individualized program for Aquatic Therapy, Neuromuscular Reeducation, and Str engthening Achieving independence - to improve, our physical therapists will perform initial evaluation of pt's status upon admission and devise an individualized program for Community Reintegration Activities - Occupational Therapy ADL deficits - to improve, our occupation therapists will perform initial evaluation of pt's status upon admission and devise an individualized program for Bathing, Bed mobility, Community Reintegratio n, Cooking, Dressing, Eating, Fine Motor Skills, Grooming, Homemaking, Kitchen Mobility, Laundry, Pat ient Education, Safety Awareness, Splinting - Positioning, Transfers(Toilet, Tub, Shower), and Wheel Chair Management Cognitive deficits - to improve, our occupation therapists will perform initial evaluation of pt's s tatus upon admission and devise an individualized program for Cognition - orientation Need for home care scheduler - to improve, our occupation therapists will perform initial evaluation of pt's status upon admission and devise an individualized program for Caregiver Training Weakness - to improve, our occupation therapists will perform initial evaluation of pt's status upon admission and devise an individualized program for Aquatic Therapy, Balance, Endurance, UE ROM, and UE strengthening - Other See attached MAR (Medication Administration Record) - Diet Type Continue Regular - Diet - Liquid Texture Continue Regular - Tube Feed Continue N/A - Bladder care per protocol - Weight Bearing Precaution WBAT left LE - Skin care per protocol - Diet - Solid Texture Continue Regular - Shower allowing shower for Dementia, TBI, Stroke, or others FUNCTIONAL STATUS: UPDATED AT WEEKLY TEAM CONFERENCE - Bladder Same accident frequency: 7-Ind - No accidents in the past 7 days - Bowel Same accident frequency: 7-Ind - No accidents in the past 7 days - Walking Same score based on distance walked: 1(<=50ft) FUNCTIONAL STATUS: - Self-Care A. Eating Shayan B. Grooming Michel C. Bathing modA D. Dressing - Upper Michel E. Dressing - Lower modA F. Toileting modA - Sphincter Control G. Bladder control sup H. Bowel control Shayan - Transfers Control I. Bed/Chair/Wheelchair modA J. Toilet Michel K. Tub/Shower modA - Locomotion L. Walk/Wheelchair (B) modA M. Stairs maxA - Communication N. Comprehension (B) sup O. Expression (B) sup - Social Cognition P. Social Interaction Shayan Q. Problem Solving modA R. Memory Michel - Endurance Fair - Balance Poor - Safety Awareness Poor QI SCORES: - Self-Care A. Eating 03-Partial/moderate assistance B. Oral hygiene 03-Partial/moderate assistance C. Toileting hygiene 02-Substantial/maximal assistance E. Shower/bathe self 01-Dependent F. Upper body dressing 03-Partial/moderate assistance G. Lower body dressing 02-Substantial/maximal assistance H. Putting on/taking off footwear - Mobility A. Roll left and right 03-Partial/moderate assistance B. Sit to lying 03-Partial/moderate assistance C. Lying to sitting on side of bed 03-Partial/moderate assistance D. Sit to stand 03-Partial/moderate assistance E. Chair/[id number] transfer 02-Substantial/maximal assistance F. Toilet transfer 02-Substantial/maximal assistance G. Car transfer 10-Not attempted due to environmental limitations I. Walk 10 feet 02-Substantial/maximal assistance J. Walk 50 feet with two turns 88-Not attempted due to medical condition or safety concerns K. Walk 150 feet 88-Not attempted due to medical condition or safety concerns L. Walking 10 feet on uneven surfaces 88-Not attempted due to medical condition or safety concerns M. 1 step (curb) 88-Not attempted due to medical condition or safety concerns N. 4 steps 88-Not attempted due to medical condition or safety concerns O. 12 steps 88-Not attempted due to medical condition or safety concerns P. Picking up object 88-Not attempted due to medical condition or safety concerns - Bladder and Bowel Bladder continence 0-Always continent Bowel continence 0-Always continent - Endurance Poor - Balance Poor - Safety Awareness Poor CURRENT FUNC. DEFICITS: Self-Care, Mobility, Endurance, Balance, and Safety Awareness SIGNATURE PANEL: (CDT)
[2021-03-31] MEDS: ATORVASTATIN 80 MG TAB PO SCH (22:22)
[2021-03-31] MEDS: MELATONIN 3 MG TABLET PO PRN (22:23)
[2021-04-01] MEDS: carvediloL 3.125 MG TAB PO SCH ×2 (05:26→17:20)
[2021-04-01 06:45] LABS: Absolute Lymphocytes (CBC) 2.9 K/uL (0.7-4.9); Basophils % 0.5 % (0-1.3); Hematocrit 33.1 % (39.6-49.0); Lymphocytes % 27.7 % (15.3-44.8); MPV 8.4 fL (7.6-11.3); RBC Red Blood Cell Count 3.83 M/uL (4.33-5.43)
[2021-04-01 07:09] LABS: Albumin 2.5 g/dL (3.4-5.0); Magnesium 2.1 mg/dL (1.8-2.4); Potassium 4.2 mmol/L (3.5-5.1); Prealbumin 13.4 mg/dL (20-40)
[2021-04-01] MEDS: INSULIN -REGULAR HUMAN 50 UNIT/0.5 ML ML SQ SCH ×4 (07:09→21:39)
[2021-04-01] MEDS: FAMOTIDINE 20 MG TAB PO SCH (08:03)
[2021-04-01] MEDS: METFORMIN HCL 500 MG TAB PO SCH ×2 (08:04→17:20)
[2021-04-01] MEDS: APIXABAN 5 MG TABLET PO SCH ×2 (08:04→21:11)
[2021-04-01] MEDS: lisinopriL 20 MG TAB PO SCH ×2 (08:04→21:11)
[2021-04-01] MEDS: SMZ./TMP. 800/160 MG TABLET PO SCH ×2 (08:04→21:10)
[2021-04-01] MEDS: NPH (HUMAN) 100 UNITS/ML INSULIN SQ SCH ×2 (08:05→21:40)
--- NOTE | 2021-04-01 17:14 | R.PN ---
PROGRESS NOTES ENCOUNTER DATE AND TIME: 04/01/2021 17:10 (CDT) NAME ABBY BO DATE OF : 1960 DATE OF ADMISSION: 03/25/2021 18:41 (CDT) Infarct in the right PonsCHIEF COMPLAINT: Right pontine stroke SUBJECTIVE: Pt denied any depression. Pt denied any Shortness of Breath. CBC with differential is essentially normal. Glucose 139 to 228. UA is normal. Ambulated 160' with moderate assistance using a left platform rolling walker. VITAL SIGNS Temperature: 96.7 F SBP/DBP: 172/79 Pulse: 69 Resp: 16 MEDICATION ALLERGIES: No Known Drug Allergies (NKDA) ENVIRONMENTAL ALLERGIES: None Known - Substance Allergies None Known - Other Allergies None Known NURSING: - Shower allowing shower - Bladder care per protocol - Skin care per protocol PRECAUTIONS: - Weight Bearing Precaution WBAT left LE ACTIVITIES OOB only with supervision THERAPIES: - Occupational Therapy Cognitive Retraining. Visual Perceptual Training. - Dietary and Nutrition Adequate Nutrition. Nutritional Education. Nutritional Supplements. - Speech Therapy Cognitive Training. Expressive Language Skills. Memory Strategies. Receptive Language Skills. Speech Intelligibility Training. PHYSICAL EXAM - Gen Alert and awake Lying in bed No apparent distress Oriented to: person, time, and place - Skin No breakdown Normacephalic - Eyes No abnormalities - ENMT No abnormalities - Neck No abnormalities - CVS RRR - Chest Clear - Abd + bowel sounds - GI Soft Deferred - No abnormalities - Ext no edema - MSK 3-4/5 weakness in left lower extremity. - Neuro 3-4/5 strength left lower extremity. - Psych No abnormalities ASSESSMENT: Pt. is a 61 yo Right-handed male.On 03/20/2021 Pt. presented to [facility] with sudd en onset of left-side weakness.On 03/20/2021 he was admitted to [facility] with diagnosis Inf arct in the right Maribel.His impairment category is Stroke 01 - Left Body (Right Brain) (01.1).Pre-mor bidly, Pt. was independent/mod-I in Transfers Control, Locomotion, Self-Care, Social Cognition, Commu nication, and Sphincter Control; and he had good Transfers Control and Locomotion.Currently, he has d eficits of Transfers Control, Safety Awareness, Locomotion, Balance, Self-Care, Social Cognition, and Communication.Pt. is now referred to [facility] for acute in-patient rehabili tation in order to maximize patient's functional independence in activities of daily living, strength , ROM, and mobility.- Rehab Goal Patient has realistic goal of being discharged at assistance level 6-Shayan to reside at Home with Fam chantelle/Relatives. MDM/PLAN: - Physical Therapy Gait dysfunction - to improve, our physical therapists will perform initial evaluation of pt's statu s upon admission and devise an individualized program for Gait Training, and Wheel Chair mobility Inability to transfer - to improve, our physical therapists will perform initial evaluation of pt's status upon admission and devise an individualized program for Bed mobility Need for home safety evaluation - to improve, our physical therapists will perform initial evaluatio n of pt's status upon admission and devise an individualized program for Home Evaluation Need in caregiver upon discharge - to improve, our physical therapists will perform initial evaluati on of pt's status upon admission and devise an individualized program for Caregiver Training New precaution - to improve, our physical therapists will perform initial evaluation of pt's status upon admission and devise an individualized program for Patient precaution education Poor balance - to improve, our physical therapists will perform initial evaluation of pt's status up on admission and devise an individualized program for Balance Training Weakness - to improve, our physical therapists will perform initial evaluation of pt's status upon a dmission and devise an individualized program for Aquatic Therapy, Neuromuscular Reeducation, and Str engthening Achieving independence - to improve, our physical therapists will perform initial evaluation of pt's status upon admission and devise an individualized program for Community Reintegration Activities - Occupational Therapy ADL deficits - to improve, our occupation therapists will perform initial evaluation of pt's status upon admission and devise an individualized program for Bathing, Bed mobility, Community Reintegratio n, Cooking, Dressing, Eating, Fine Motor Skills, Grooming, Homemaking, Kitchen Mobility, Laundry, Pat ient Education, Safety Awareness, Splinting - Positioning, Transfers(Toilet, Tub, Shower), and Wheel Chair Management Cognitive deficits - to improve, our occupation therapists will perform initial evaluation of pt's s tatus upon admission and devise an individualized program for Cognition - orientation Need for careers counsellor - to improve, our occupation therapists will perform initial evaluation of pt's status upon admission and devise an individualized program for Caregiver Training Weakness - to improve, our occupation therapists will perform initial evaluation of pt's status upon admission and devise an individualized program for Aquatic Therapy, Balance, Endurance, UE ROM, and UE strengthening - Other See attached MAR (Medication Administration Record) - Diet Type Continue Regular - Diet - Liquid Texture Continue Regular - Tube Feed Continue N/A - Bladder care per protocol - Weight Bearing Precaution WBAT left LE - Skin care per protocol - Diet - Solid Texture Continue Regular - Shower allowing shower for Dementia, TBI, Stroke, or others FUNCTIONAL STATUS: UPDATED AT WEEKLY TEAM CONFERENCE - Bladder Same accident frequency: 7-Ind - No accidents in the past 7 days - Bowel Same accident frequency: 7-Ind - No accidents in the past 7 days - Walking Same score based on distance walked: 1(<=50ft) FUNCTIONAL STATUS: - Self-Care A. Eating Shayan B. Grooming Michel C. Bathing modA D. Dressing - Upper Michel E. Dressing - Lower modA F. Toileting modA - Sphincter Control G. Bladder control sup H. Bowel control Shayan - Transfers Control I. Bed/Chair/Wheelchair modA J. Toilet Michel K. Tub/Shower modA - Locomotion L. Walk/Wheelchair (B) modA M. Stairs maxA - Communication N. Comprehension (B) sup O. Expression (B) sup - Social Cognition P. Social Interaction Shayan Q. Problem Solving modA R. Memory Michel - Endurance Fair - Balance Poor - Safety Awareness Poor QI SCORES: - Self-Care A. Eating 03-Partial/moderate assistance B. Oral hygiene 03-Partial/moderate assistance C. Toileting hygiene 02-Substantial/maximal assistance E. Shower/bathe self 01-Dependent F. Upper body dressing 03-Partial/moderate assistance G. Lower body dressing 02-Substantial/maximal assistance H. Putting on/taking off footwear - Mobility A. Roll left and right 03-Partial/moderate assistance B. Sit to lying 03-Partial/moderate assistance C. Lying to sitting on side of bed 03-Partial/moderate assistance D. Sit to stand 03-Partial/moderate assistance E. Chair/[id number] transfer 02-Substantial/maximal assistance F. Toilet transfer 02-Substantial/maximal assistance G. Car transfer 10-Not attempted due to environmental limitations I. Walk 10 feet 02-Substantial/maximal assistance J. Walk 50 feet with two turns 88-Not attempted due to medical condition or safety concerns K. Walk 150 feet 88-Not attempted due to medical condition or safety concerns L. Walking 10 feet on uneven surfaces 88-Not attempted due to medical condition or safety concerns M. 1 step (curb) 88-Not attempted due to medical condition or safety concerns N. 4 steps 88-Not attempted due to medical condition or safety concerns O. 12 steps 88-Not attempted due to medical condition or safety concerns P. Picking up object 88-Not attempted due to medical condition or safety concerns - Bladder and Bowel Bladder continence 0-Always continent Bowel continence 0-Always continent - Endurance Poor - Balance Poor - Safety Awareness Poor CURRENT FUNC. DEFICITS: Self-Care, Mobility, Endurance, Balance, and Safety Awareness SIGNATURE PANEL: (CDT)
[2021-04-01] MEDS: MELATONIN 3 MG TABLET PO PRN (21:10)
[2021-04-01] MEDS: ATORVASTATIN 80 MG TAB PO SCH (21:11)
[2021-04-01] MEDS: cloNIDine HCL 0.1 MG TAB PO PRN (21:14)
[2021-04-02] MEDS: carvediloL 3.125 MG TAB PO SCH ×2 (05:21→17:23)
[2021-04-02] MEDS: INSULIN -REGULAR HUMAN 50 UNIT/0.5 ML ML SQ SCH ×4 (07:18→20:01)
[2021-04-02] MEDS: METFORMIN HCL 500 MG TAB PO SCH ×2 (07:42→17:23)
[2021-04-02] MEDS: FAMOTIDINE 20 MG TAB PO SCH (07:42)
[2021-04-02] MEDS: SMZ./TMP. 800/160 MG TABLET PO SCH ×2 (07:42→19:54)
[2021-04-02] MEDS: APIXABAN 5 MG TABLET PO SCH ×2 (07:42→19:55)
[2021-04-02] MEDS: lisinopriL 20 MG TAB PO SCH ×2 (07:42→19:55)
[2021-04-02] MEDS: NPH (HUMAN) 100 UNITS/ML INSULIN SQ SCH ×2 (08:32→19:59)
--- NOTE | 2021-04-02 09:50 | P.RH.PN ---
Estimated Length of Stay: 18 Expected Discharge Date: 04/11/21 Family Support: Yes Vital Signs: Last Vital Signs Temp 97.1 F 04/02/21 07:07 Pulse 72 04/02/21 07:42 Resp 14 04/02/21 07:07 BP 155/72 H 04/02/21 07:42 Pulse Ox 99 04/02/21 07:07 Laboratory: Laboratory Last Values WBC 10.30 K/uL (4.3-10.9) 04/01/21 06:08 RBC 3.83 M/uL (4.33-5.43) L 04/01/21 06:08 Hgb 10.8 g/dL (13.6-17.9) L 04/01/21 06:08 Hct 33.1 % (39.6-49.0) L 04/01/21 06:08 MCV 86.6 fL (80-100) 04/01/21 06:08 MCH 28.3 pg (27.0-35.0) 04/01/21 06:08 MCHC 32.6 g/dL (32.0-36.0) 04/01/21 06:08 RDW 13.6 % (12.1-15.2) 04/01/21 06:08 Plt Count 321 K/uL (152-406) 04/01/21 06:08 MPV 8.4 fL (7.6-11.3) 04/01/21 06:08 Neutrophils % 61.6 % (41.7-73.7) 04/01/21 06:08 Lymphocytes % 27.7 % (15.3-44.8) 04/01/21 06:08 Monocytes % 8.0 % (3.3-12.3) 04/01/21 06:08 Eosinophils % 2.2 % (0-4.4) 04/01/21 06:08 Basophils % 0.5 % (0-1.3) 04/01/21 06:08 Absolute Neutrophils 6.4 K/uL (1.8-8.0) 04/01/21 06:08 Absolute Lymphocytes 2.9 K/uL (0.7-4.9) 04/01/21 06:08 Absolute Monocytes 0.8 K/uL (0.1-1.3) 04/01/21 06:08 Absolute Eosinophils 0.2 K/uL (0-0.5) 04/01/21 06:08 Absolute Basophils 0.1 K/uL (0-0.5) 04/01/21 06:08 Sodium 139 mmol/L (136-145) 04/01/21 06:08 Potassium 4.2 mmol/L (3.5-5.1) 04/01/21 06:08 Chloride 107 mmol/L (98-107) 04/01/21 06:08 Carbon Dioxide 28 mmol/L (21-32) 04/01/21 06:08 BUN 17 mg/dL (7-18) 04/01/21 06:08 Creatinine 1.00 mg/dL (0.55-1.3) 04/01/21 06:08 Estimated GFR 76 mL/min (=/>90) L 04/01/21 06:08 Glucose 116 mg/dL (74-106) H 04/01/21 06:08 POC Glucose 107 mg/dL (65-120) 04/02/21 06:58 Calcium 8.5 mg/dL (8.5-10.1) 04/01/21 06:08 Magnesium 2.1 mg/dL (1.8-2.4) 04/01/21 06:08 Albumin 2.5 g/dL (3.4-5.0) L 04/01/21 06:08 Prealbumin 13.4 mg/dL (20-40) L 04/01/21 06:08 Urine Color Yellow (Yellow) 03/26/21 16:40 Urine Appearance Clear (Clear) 03/26/21 16:40 Urine pH 6.0 (5.0-7.0) 03/26/21 16:40 Ur Specific [place] 1.020 (1.005-1.030) 03/26/21 16:40 Glucose (UA)(Auto) Trace (Negative) 03/26/21 16:40 Urine Ketones Negative (Negative) 03/26/21 16:40 Urine Blood Negative (Negative) 03/26/21 16:40 Urine Nitrite Negative (Negative) 03/26/21 16:40 Urine Bilirubin Negative (Negative) 03/26/21 16:40 Urine Urobilinogen 1.0 mg/dL (0.2-1.0) 03/26/21 16:40 Ur Leukocyte Esterase Negative (Negative) 03/26/21 16:40 Urine RBC None seen /HPF (NONE SEEN) 03/26/21 16:40 Urine WBC <5 /HPF (<5) 03/26/21 16:40 Ur Squamous Epith Cells <5 /HPF (NONE SEEN) 03/26/21 16:40 Urine Bacteria <20 /HPF (NONE SEEN) 03/26/21 16:40 Hyaline Casts 0-5 /LPF (NONE SEEN) 03/26/21 16:40 Urine Mucus Light /HPF (NONE SEEN) 03/26/21 16:40 Urine Culture Reflexed Not needed 03/26/21 16:40 Urine Total Protein 1+ (Negative) H 03/26/21 16:40 SARS-CoV-2 RNA (RT-PCR) Negative (NEGATIVE) 03/25/21 14:35 Weight: 162 lb 9.6 oz Wound Present: No Closed Surgical Incision Present: No Negative Pressure Wound Therapy Present: No Physician Update: His labs are stable. He wants to leave for [place] for an unknown treatment to resolve his left arm weakness. He only wants the left arm estim. He walks 34' with moderate assistance. His family will be encouraged to help in therapy sessions. He will be asked to remain until next Monday. Comment: Skin intact. Summary: Patient's care plan and intermodal dispatcher goals have been reviewed and revised as necessary. Please see the Rehabilitation Signature page for all necessary signatures.
[2021-04-02] MEDS: carvediloL 6.25 MG TAB PO SCH (19:54)
[2021-04-02] MEDS: DOCUSATE NA/SENNA CONC 1 TAB PO PRN (19:56)
[2021-04-02] MEDS: ATORVASTATIN 80 MG TAB PO SCH (20:02)
[2021-04-02] MEDS: cloNIDine HCL 0.1 MG TAB PO PRN (20:11)
[2021-04-03] MEDS: cloNIDine HCL 0.1 MG TAB PO PRN ×2 (05:22→12:00)
[2021-04-03 05:45] VITALS: BMI 29.9
[2021-04-03] MEDS: INSULIN -REGULAR HUMAN 50 UNIT/0.5 ML ML SQ SCH ×4 (07:30→20:09)
[2021-04-03] MEDS: carvediloL 6.25 MG TAB PO SCH ×2 (07:42→20:08)
[2021-04-03] MEDS: lisinopriL 20 MG TAB PO SCH ×2 (07:42→20:08)
[2021-04-03] MEDS: NPH (HUMAN) 100 UNITS/ML INSULIN SQ SCH ×2 (07:57→20:00)
[2021-04-03] MEDS: FAMOTIDINE 20 MG TAB PO SCH (07:57)
[2021-04-03] MEDS: SMZ./TMP. 800/160 MG TABLET PO SCH ×2 (07:58→20:09)
[2021-04-03] MEDS: APIXABAN 5 MG TABLET PO SCH ×2 (07:58→20:09)
[2021-04-03] MEDS: METFORMIN HCL 500 MG TAB PO SCH ×2 (07:58→16:49)
[2021-04-03] MEDS: ATORVASTATIN 80 MG TAB PO SCH (20:08)
[2021-04-03] MEDS: MELATONIN 3 MG TABLET PO PRN (20:10)
[2021-04-04] MEDS: INSULIN -REGULAR HUMAN 50 UNIT/0.5 ML ML SQ SCH ×4 (07:30→19:51)
[2021-04-04] MEDS: lisinopriL 20 MG TAB PO SCH ×2 (08:03→19:51)
[2021-04-04] MEDS: NPH (HUMAN) 100 UNITS/ML INSULIN SQ SCH ×2 (08:03→19:50)
[2021-04-04] MEDS: APIXABAN 5 MG TABLET PO SCH ×2 (08:04→19:50)
[2021-04-04] MEDS: METFORMIN HCL 500 MG TAB PO SCH ×2 (08:04→16:46)
[2021-04-04] MEDS: SMZ./TMP. 800/160 MG TABLET PO SCH (08:04)
[2021-04-04] MEDS: FAMOTIDINE 20 MG TAB PO SCH (08:04)
[2021-04-04] MEDS: carvediloL 6.25 MG TAB PO SCH ×2 (08:04→19:50)
[2021-04-04] MEDS: ATORVASTATIN 80 MG TAB PO SCH (19:50)
[2021-04-04] MEDS: MELATONIN 3 MG TABLET PO PRN (19:50)
[2021-04-05] MEDS: INSULIN -REGULAR HUMAN 50 UNIT/0.5 ML ML SQ SCH ×4 (07:02→18:59)
[2021-04-05] MEDS: APIXABAN 5 MG TABLET PO SCH ×2 (07:40→18:57)
[2021-04-05] MEDS: METFORMIN HCL 500 MG TAB PO SCH ×2 (07:40→16:55)
[2021-04-05] MEDS: lisinopriL 20 MG TAB PO SCH ×2 (07:40→18:56)
[2021-04-05] MEDS: FAMOTIDINE 20 MG TAB PO SCH (07:40)
[2021-04-05] MEDS: NPH (HUMAN) 100 UNITS/ML INSULIN SQ SCH ×2 (07:41→18:59)
[2021-04-05] MEDS: carvediloL 6.25 MG TAB PO SCH ×2 (07:42→18:57)
[2021-04-05] MEDS ORDERED: LOPERAMIDE HCL 2 MG CAPSULE PO PRN (16:40)
[2021-04-05] MEDS ORDERED: SIMETHICONE 80 MG TAB PO PRN (16:40)
--- NOTE | 2021-04-05 18:09 | R.PN ---
PROGRESS NOTES ENCOUNTER DATE AND TIME: 04/05/2021 18:05 (CDT) NAME ABBY BO DATE OF : 1960 DATE OF ADMISSION: 03/25/2021 18:41 (CDT) Infarct in the right PonsCHIEF COMPLAINT: Right pontine stroke SUBJECTIVE: Pt denied any depression. Pt denied any Shortness of Breath. CBC with differential is essentially normal. Glucose 139 to 228. UA is normal. Ambulated 650' with contact guard assistance using a left hemiwalker. VITAL SIGNS Temperature: 96.9 F SBP/DBP: 166/73 Pulse: 68 Resp: 16 MEDICATION ALLERGIES: No Known Drug Allergies (NKDA) ENVIRONMENTAL ALLERGIES: None Known - Substance Allergies None Known - Other Allergies None Known NURSING: - Shower allowing shower - Bladder care per protocol - Skin care per protocol PRECAUTIONS: - Weight Bearing Precaution WBAT left LE ACTIVITIES OOB only with supervision THERAPIES: - Occupational Therapy Cognitive Retraining. Visual Perceptual Training. - Dietary and Nutrition Adequate Nutrition. Nutritional Education. Nutritional Supplements. - Speech Therapy Cognitive Training. Expressive Language Skills. Memory Strategies. Receptive Language Skills. Speech Intelligibility Training. PHYSICAL EXAM - Gen Alert and awake Lying in bed No apparent distress Oriented to: person, time, and place - Skin No breakdown Normacephalic - Eyes No abnormalities - ENMT No abnormalities - Neck No abnormalities - CVS RRR - Chest Clear - Abd + bowel sounds - GI Soft Deferred - No abnormalities - Ext no edema - MSK 3-4/5 weakness in left lower extremity. - Neuro 3-4/5 strength left lower extremity. - Psych No abnormalities ASSESSMENT: Pt. is a 61 yo Right-handed male.On 03/20/2021 Pt. presented to [facility] with sudd en onset of left-side weakness.On 03/20/2021 he was admitted to [facility] with diagnosis Inf arct in the right Maribel.His impairment category is Stroke 01 - Left Body (Right Brain) (01.1).Pre-mor bidly, Pt. was independent/mod-I in Transfers Control, Locomotion, Self-Care, Social Cognition, Commu nication, and Sphincter Control; and he had good Transfers Control and Locomotion.Currently, he has d eficits of Transfers Control, Safety Awareness, Locomotion, Balance, Self-Care, Social Cognition, and Communication.Pt. is now referred to [facility] for acute in-patient rehabili tation in order to maximize patient's functional independence in activities of daily living, strength , ROM, and mobility.- Rehab Goal Patient has realistic goal of being discharged at assistance level 6-Shayan to reside at Home with Fam chantelle/Relatives. MDM/PLAN: - Physical Therapy Gait dysfunction - to improve, our physical therapists will perform initial evaluation of pt's statu s upon admission and devise an individualized program for Gait Training, and Wheel Chair mobility Inability to transfer - to improve, our physical therapists will perform initial evaluation of pt's status upon admission and devise an individualized program for Bed mobility Need for home safety evaluation - to improve, our physical therapists will perform initial evaluatio n of pt's status upon admission and devise an individualized program for Home Evaluation Need in caregiver upon discharge - to improve, our physical therapists will perform initial evaluati on of pt's status upon admission and devise an individualized program for Caregiver Training New precaution - to improve, our physical therapists will perform initial evaluation of pt's status upon admission and devise an individualized program for Patient precaution education Poor balance - to improve, our physical therapists will perform initial evaluation of pt's status up on admission and devise an individualized program for Balance Training Weakness - to improve, our physical therapists will perform initial evaluation of pt's status upon a dmission and devise an individualized program for Aquatic Therapy, Neuromuscular Reeducation, and Str engthening Achieving independence - to improve, our physical therapists will perform initial evaluation of pt's status upon admission and devise an individualized program for Community Reintegration Activities - Occupational Therapy ADL deficits - to improve, our occupation therapists will perform initial evaluation of pt's status upon admission and devise an individualized program for Bathing, Bed mobility, Community Reintegratio n, Cooking, Dressing, Eating, Fine Motor Skills, Grooming, Homemaking, Kitchen Mobility, Laundry, Pat ient Education, Safety Awareness, Splinting - Positioning, Transfers(Toilet, Tub, Shower), and Wheel Chair Management Cognitive deficits - to improve, our occupation therapists will perform initial evaluation of pt's s tatus upon admission and devise an individualized program for Cognition - orientation Need for care worker - to improve, our occupation therapists will perform initial evaluation of pt's status upon admission and devise an individualized program for Caregiver Training Weakness - to improve, our occupation therapists will perform initial evaluation of pt's status upon admission and devise an individualized program for Aquatic Therapy, Balance, Endurance, UE ROM, and UE strengthening - Other See attached MAR (Medication Administration Record) - Diet Type Continue Regular - Diet - Liquid Texture Continue Regular - Tube Feed Continue N/A - Bladder care per protocol - Weight Bearing Precaution WBAT left LE - Skin care per protocol - Diet - Solid Texture Continue Regular - Shower allowing shower for Dementia, TBI, Stroke, or others FUNCTIONAL STATUS: UPDATED AT WEEKLY TEAM CONFERENCE - Bladder Same accident frequency: 7-Ind - No accidents in the past 7 days - Bowel Same accident frequency: 7-Ind - No accidents in the past 7 days - Walking Same score based on distance walked: 1(<=50ft) FUNCTIONAL STATUS: - Self-Care A. Eating Shayan B. Grooming Michel C. Bathing modA D. Dressing - Upper Michel E. Dressing - Lower modA F. Toileting modA - Sphincter Control G. Bladder control sup H. Bowel control Shayan - Transfers Control I. Bed/Chair/Wheelchair modA J. Toilet Michel K. Tub/Shower modA - Locomotion L. Walk/Wheelchair (B) modA M. Stairs maxA - Communication N. Comprehension (B) sup O. Expression (B) sup - Social Cognition P. Social Interaction Shayan Q. Problem Solving modA R. Memory Michel - Endurance Fair - Balance Poor - Safety Awareness Poor QI SCORES: - Self-Care A. Eating 03-Partial/moderate assistance B. Oral hygiene 03-Partial/moderate assistance C. Toileting hygiene 02-Substantial/maximal assistance E. Shower/bathe self 01-Dependent F. Upper body dressing 03-Partial/moderate assistance G. Lower body dressing 02-Substantial/maximal assistance H. Putting on/taking off footwear - Mobility A. Roll left and right 03-Partial/moderate assistance B. Sit to lying 03-Partial/moderate assistance C. Lying to sitting on side of bed 03-Partial/moderate assistance D. Sit to stand 03-Partial/moderate assistance E. Chair/[id number] transfer 02-Substantial/maximal assistance F. Toilet transfer 02-Substantial/maximal assistance G. Car transfer 10-Not attempted due to environmental limitations I. Walk 10 feet 02-Substantial/maximal assistance J. Walk 50 feet with two turns 88-Not attempted due to medical condition or safety concerns K. Walk 150 feet 88-Not attempted due to medical condition or safety concerns L. Walking 10 feet on uneven surfaces 88-Not attempted due to medical condition or safety concerns M. 1 step (curb) 88-Not attempted due to medical condition or safety concerns N. 4 steps 88-Not attempted due to medical condition or safety concerns O. 12 steps 88-Not attempted due to medical condition or safety concerns P. Picking up object 88-Not attempted due to medical condition or safety concerns - Bladder and Bowel Bladder continence 0-Always continent Bowel continence 0-Always continent - Endurance Poor - Balance Poor - Safety Awareness Poor CURRENT FUNC. DEFICITS: Self-Care, Mobility, Endurance, Balance, and Safety Awareness SIGNATURE PANEL: (CDT)
[2021-04-05] MEDS: cloNIDine HCL 0.1 MG TAB PO PRN (18:54)
[2021-04-05] MEDS: ATORVASTATIN 80 MG TAB PO SCH (18:57)
[2021-04-05] MEDS: DOCUSATE NA/SENNA CONC 1 TAB PO PRN (18:57)
[2021-04-06] MEDS: cloNIDine HCL 0.1 MG TAB PO PRN ×2 (04:22→21:01)
[2021-04-06] MEDS: INSULIN -REGULAR HUMAN 50 UNIT/0.5 ML ML SQ SCH ×4 (06:51→21:00)
[2021-04-06] MEDS: METFORMIN HCL 500 MG TAB PO SCH ×2 (07:27→16:46)
[2021-04-06] MEDS: lisinopriL 20 MG TAB PO SCH ×2 (07:27→20:59)
[2021-04-06] MEDS: carvediloL 6.25 MG TAB PO SCH ×2 (07:27→20:59)
[2021-04-06] MEDS: APIXABAN 5 MG TABLET PO SCH ×2 (07:27→20:59)
[2021-04-06] MEDS: NPH (HUMAN) 100 UNITS/ML INSULIN SQ SCH ×2 (07:28→21:00)
[2021-04-06] MEDS: FAMOTIDINE 20 MG TAB PO SCH (07:28)
[2021-04-06] MEDS: AMLODIPINE 5 MG TAB PO SCH (15:17)
--- NOTE | 2021-04-06 18:00 | R.PN ---
PROGRESS NOTES ENCOUNTER DATE AND TIME: 04/06/2021 17:57 (CDT) NAME ABBY BO DATE OF : 1960 DATE OF ADMISSION: 03/25/2021 18:41 (CDT) Infarct in the right PonsCHIEF COMPLAINT: Right pontine stroke SUBJECTIVE: Pt denied any depression. Pt denied any Shortness of Breath. CBC with differential is essentially normal. Glucose 145 to 259. UA is normal. Ambulated 650' with contact guard assistance using a left hemiwalker. VITAL SIGNS Temperature: 96.9 F SBP/DBP: 189/84 Pulse: 66 Resp: 16 MEDICATION ALLERGIES: No Known Drug Allergies (NKDA) ENVIRONMENTAL ALLERGIES: None Known - Substance Allergies None Known - Other Allergies None Known NURSING: - Shower allowing shower - Bladder care per protocol - Skin care per protocol PRECAUTIONS: - Weight Bearing Precaution WBAT left LE ACTIVITIES OOB only with supervision THERAPIES: - Occupational Therapy Cognitive Retraining. Visual Perceptual Training. - Dietary and Nutrition Adequate Nutrition. Nutritional Education. Nutritional Supplements. - Speech Therapy Cognitive Training. Expressive Language Skills. Memory Strategies. Receptive Language Skills. Speech Intelligibility Training. PHYSICAL EXAM - Gen Alert and awake Lying in bed No apparent distress Oriented to: person, time, and place - Skin No breakdown Normacephalic - Eyes No abnormalities - ENMT No abnormalities - Neck No abnormalities - CVS RRR - Chest Clear - Abd + bowel sounds - GI Soft Deferred - No abnormalities - Ext no edema - MSK 3-4/5 weakness in left lower extremity. - Neuro 3-4/5 strength left lower extremity. - Psych No abnormalities ASSESSMENT: Pt. is a 61 yo Right-handed male.On 03/20/2021 Pt. presented to [facility] with sudd en onset of left-side weakness.On 03/20/2021 he was admitted to [facility] with diagnosis Inf arct in the right Maribel.His impairment category is Stroke 01 - Left Body (Right Brain) (01.1).Pre-mor bidly, Pt. was independent/mod-I in Transfers Control, Locomotion, Self-Care, Social Cognition, Commu nication, and Sphincter Control; and he had good Transfers Control and Locomotion.Currently, he has d eficits of Transfers Control, Safety Awareness, Locomotion, Balance, Self-Care, Social Cognition, and Communication.Pt. is now referred to [facility] for acute in-patient rehabili tation in order to maximize patient's functional independence in activities of daily living, strength , ROM, and mobility.- Rehab Goal Patient has realistic goal of being discharged at assistance level 6-Shayan to reside at Home with Fam chantelle/Relatives. MDM/PLAN: - Physical Therapy Gait dysfunction - to improve, our physical therapists will perform initial evaluation of pt's statu s upon admission and devise an individualized program for Gait Training, and Wheel Chair mobility Inability to transfer - to improve, our physical therapists will perform initial evaluation of pt's status upon admission and devise an individualized program for Bed mobility Need for home safety evaluation - to improve, our physical therapists will perform initial evaluatio n of pt's status upon admission and devise an individualized program for Home Evaluation Need in caregiver upon discharge - to improve, our physical therapists will perform initial evaluati on of pt's status upon admission and devise an individualized program for Caregiver Training New precaution - to improve, our physical therapists will perform initial evaluation of pt's status upon admission and devise an individualized program for Patient precaution education Poor balance - to improve, our physical therapists will perform initial evaluation of pt's status up on admission and devise an individualized program for Balance Training Weakness - to improve, our physical therapists will perform initial evaluation of pt's status upon a dmission and devise an individualized program for Aquatic Therapy, Neuromuscular Reeducation, and Str engthening Achieving independence - to improve, our physical therapists will perform initial evaluation of pt's status upon admission and devise an individualized program for Community Reintegration Activities - Occupational Therapy ADL deficits - to improve, our occupation therapists will perform initial evaluation of pt's status upon admission and devise an individualized program for Bathing, Bed mobility, Community Reintegratio n, Cooking, Dressing, Eating, Fine Motor Skills, Grooming, Homemaking, Kitchen Mobility, Laundry, Pat ient Education, Safety Awareness, Splinting - Positioning, Transfers(Toilet, Tub, Shower), and Wheel Chair Management Cognitive deficits - to improve, our occupation therapists will perform initial evaluation of pt's s tatus upon admission and devise an individualized program for Cognition - orientation Need for healthcare applications analyst - to improve, our occupation therapists will perform initial evaluation of pt's status upon admission and devise an individualized program for Caregiver Training Weakness - to improve, our occupation therapists will perform initial evaluation of pt's status upon admission and devise an individualized program for Aquatic Therapy, Balance, Endurance, UE ROM, and UE strengthening - Other See attached MAR (Medication Administration Record) - Diet Type Continue Regular - Diet - Liquid Texture Continue Regular - Tube Feed Continue N/A - Bladder care per protocol - Weight Bearing Precaution WBAT left LE - Skin care per protocol - Diet - Solid Texture Continue Regular - Shower allowing shower for Dementia, TBI, Stroke, or others FUNCTIONAL STATUS: UPDATED AT WEEKLY TEAM CONFERENCE - Bladder Same accident frequency: 7-Ind - No accidents in the past 7 days - Bowel Same accident frequency: 7-Ind - No accidents in the past 7 days - Walking Same score based on distance walked: 1(<=50ft) FUNCTIONAL STATUS: - Self-Care A. Eating Shayan B. Grooming Michel C. Bathing modA D. Dressing - Upper Michel E. Dressing - Lower modA F. Toileting modA - Sphincter Control G. Bladder control sup H. Bowel control Shayan - Transfers Control I. Bed/Chair/Wheelchair modA J. Toilet Michel K. Tub/Shower modA - Locomotion L. Walk/Wheelchair (B) modA M. Stairs maxA - Communication N. Comprehension (B) sup O. Expression (B) sup - Social Cognition P. Social Interaction Shayan Q. Problem Solving modA R. Memory Michel - Endurance Fair - Balance Poor - Safety Awareness Poor QI SCORES: - Self-Care A. Eating 03-Partial/moderate assistance B. Oral hygiene 03-Partial/moderate assistance C. Toileting hygiene 02-Substantial/maximal assistance E. Shower/bathe self 01-Dependent F. Upper body dressing 03-Partial/moderate assistance G. Lower body dressing 02-Substantial/maximal assistance H. Putting on/taking off footwear - Mobility A. Roll left and right 03-Partial/moderate assistance B. Sit to lying 03-Partial/moderate assistance C. Lying to sitting on side of bed 03-Partial/moderate assistance D. Sit to stand 03-Partial/moderate assistance E. Chair/[id number] transfer 02-Substantial/maximal assistance F. Toilet transfer 02-Substantial/maximal assistance G. Car transfer 10-Not attempted due to environmental limitations I. Walk 10 feet 02-Substantial/maximal assistance J. Walk 50 feet with two turns 88-Not attempted due to medical condition or safety concerns K. Walk 150 feet 88-Not attempted due to medical condition or safety concerns L. Walking 10 feet on uneven surfaces 88-Not attempted due to medical condition or safety concerns M. 1 step (curb) 88-Not attempted due to medical condition or safety concerns N. 4 steps 88-Not attempted due to medical condition or safety concerns O. 12 steps 88-Not attempted due to medical condition or safety concerns P. Picking up object 88-Not attempted due to medical condition or safety concerns - Bladder and Bowel Bladder continence 0-Always continent Bowel continence 0-Always continent - Endurance Poor - Balance Poor - Safety Awareness Poor CURRENT FUNC. DEFICITS: Self-Care, Mobility, Endurance, Balance, and Safety Awareness SIGNATURE PANEL: (CDT)
[2021-04-06] MEDS: ATORVASTATIN 80 MG TAB PO SCH (20:56)
[2021-04-07] MEDS: INSULIN -REGULAR HUMAN 50 UNIT/0.5 ML ML SQ SCH ×4 (07:13→19:30)
[2021-04-07] MEDS: carvediloL 6.25 MG TAB PO SCH ×2 (07:14→19:29)
[2021-04-07] MEDS: AMLODIPINE 5 MG TAB PO SCH (07:15)
[2021-04-07] MEDS: lisinopriL 20 MG TAB PO SCH ×2 (07:16→19:29)
[2021-04-07] MEDS: NPH (HUMAN) 100 UNITS/ML INSULIN SQ SCH ×2 (07:41→19:30)
[2021-04-07] MEDS: FAMOTIDINE 20 MG TAB PO SCH (07:42)
[2021-04-07] MEDS: METFORMIN HCL 500 MG TAB PO SCH ×2 (07:42→17:04)
[2021-04-07] MEDS: APIXABAN 5 MG TABLET PO SCH ×2 (07:42→19:29)
--- NOTE | 2021-04-07 17:12 | R.PN ---
PROGRESS NOTES ENCOUNTER DATE AND TIME: 04/07/2021 17:07 (CDT) NAME ABBY BO DATE OF : 1960 DATE OF ADMISSION: 03/25/2021 18:41 (CDT) Infarct in the right PonsCHIEF COMPLAINT: Right pontine stroke SUBJECTIVE: Pt denied any depression. Pt denied any Shortness of Breath. CBC with differential is essentially normal. Glucose 112 to 126. UA is normal. Ambulated 250' with standby assistance using a left hemiwalker. Self-propelled wheelchair 250' with supervision. VITAL SIGNS Temperature: 97.0 F SBP/DBP: 166/61 Pulse: 64 Resp: 16 MEDICATION ALLERGIES: No Known Drug Allergies (NKDA) ENVIRONMENTAL ALLERGIES: None Known - Substance Allergies None Known - Other Allergies None Known NURSING: - Shower allowing shower - Bladder care per protocol - Skin care per protocol PRECAUTIONS: - Weight Bearing Precaution WBAT left LE ACTIVITIES OOB only with supervision THERAPIES: - Occupational Therapy Cognitive Retraining. Visual Perceptual Training. - Dietary and Nutrition Adequate Nutrition. Nutritional Education. Nutritional Supplements. - Speech Therapy Cognitive Training. Expressive Language Skills. Memory Strategies. Receptive Language Skills. Speech Intelligibility Training. PHYSICAL EXAM - Gen Alert and awake Lying in bed No apparent distress Oriented to: person, time, and place - Skin No breakdown Normacephalic - Eyes No abnormalities - ENMT No abnormalities - Neck No abnormalities - CVS RRR - Chest Clear - Abd + bowel sounds - GI Soft Deferred - No abnormalities - Ext no edema - MSK 3-4/5 weakness in left lower extremity. - Neuro 3-4/5 strength left lower extremity. - Psych No abnormalities ASSESSMENT: Pt. is a 61 yo Right-handed male.On 03/20/2021 Pt. presented to [facility] with sudd en onset of left-side weakness.On 03/20/2021 he was admitted to [facility] with diagnosis Inf arct in the right Maribel.His impairment category is Stroke 01 - Left Body (Right Brain) (01.1).Pre-mor bidly, Pt. was independent/mod-I in Transfers Control, Locomotion, Self-Care, Social Cognition, Commu nication, and Sphincter Control; and he had good Transfers Control and Locomotion.Currently, he has d eficits of Transfers Control, Safety Awareness, Locomotion, Balance, Self-Care, Social Cognition, and Communication.Pt. is now referred to [facility] for acute in-patient rehabili tation in order to maximize patient's functional independence in activities of daily living, strength , ROM, and mobility.- Rehab Goal Patient has realistic goal of being discharged at assistance level 6-Shayan to reside at Home with Fam chantelle/Relatives. MDM/PLAN: - Physical Therapy Gait dysfunction - to improve, our physical therapists will perform initial evaluation of pt's statu s upon admission and devise an individualized program for Gait Training, and Wheel Chair mobility Inability to transfer - to improve, our physical therapists will perform initial evaluation of pt's status upon admission and devise an individualized program for Bed mobility Need for home safety evaluation - to improve, our physical therapists will perform initial evaluatio n of pt's status upon admission and devise an individualized program for Home Evaluation Need in caregiver upon discharge - to improve, our physical therapists will perform initial evaluati on of pt's status upon admission and devise an individualized program for Caregiver Training New precaution - to improve, our physical therapists will perform initial evaluation of pt's status upon admission and devise an individualized program for Patient precaution education Poor balance - to improve, our physical therapists will perform initial evaluation of pt's status up on admission and devise an individualized program for Balance Training Weakness - to improve, our physical therapists will perform initial evaluation of pt's status upon a dmission and devise an individualized program for Aquatic Therapy, Neuromuscular Reeducation, and Str engthening Achieving independence - to improve, our physical therapists will perform initial evaluation of pt's status upon admission and devise an individualized program for Community Reintegration Activities - Occupational Therapy ADL deficits - to improve, our occupation therapists will perform initial evaluation of pt's status upon admission and devise an individualized program for Bathing, Bed mobility, Community Reintegratio n, Cooking, Dressing, Eating, Fine Motor Skills, Grooming, Homemaking, Kitchen Mobility, Laundry, Pat ient Education, Safety Awareness, Splinting - Positioning, Transfers(Toilet, Tub, Shower), and Wheel Chair Management Cognitive deficits - to improve, our occupation therapists will perform initial evaluation of pt's s tatus upon admission and devise an individualized program for Cognition - orientation Need for physician primary care sports medicine - to improve, our occupation therapists will perform initial evaluation of pt's status upon admission and devise an individualized program for Caregiver Training Weakness - to improve, our occupation therapists will perform initial evaluation of pt's status upon admission and devise an individualized program for Aquatic Therapy, Balance, Endurance, UE ROM, and UE strengthening - Other See attached MAR (Medication Administration Record) - Diet Type Continue Regular - Diet - Liquid Texture Continue Regular - Tube Feed Continue N/A - Bladder care per protocol - Weight Bearing Precaution WBAT left LE - Skin care per protocol - Diet - Solid Texture Continue Regular - Shower allowing shower for Dementia, TBI, Stroke, or others FUNCTIONAL STATUS: UPDATED AT WEEKLY TEAM CONFERENCE - Bladder Same accident frequency: 7-Ind - No accidents in the past 7 days - Bowel Same accident frequency: 7-Ind - No accidents in the past 7 days - Walking Same score based on distance walked: 1(<=50ft) FUNCTIONAL STATUS: - Self-Care A. Eating Shayan B. Grooming Michel C. Bathing modA D. Dressing - Upper Michel E. Dressing - Lower modA F. Toileting modA - Sphincter Control G. Bladder control sup H. Bowel control Shayan - Transfers Control I. Bed/Chair/Wheelchair modA J. Toilet Michel K. Tub/Shower modA - Locomotion L. Walk/Wheelchair (B) modA M. Stairs maxA - Communication N. Comprehension (B) sup O. Expression (B) sup - Social Cognition P. Social Interaction Shayan Q. Problem Solving modA R. Memory Michel - Endurance Fair - Balance Poor - Safety Awareness Poor QI SCORES: - Self-Care A. Eating 03-Partial/moderate assistance B. Oral hygiene 03-Partial/moderate assistance C. Toileting hygiene 02-Substantial/maximal assistance E. Shower/bathe self 01-Dependent F. Upper body dressing 03-Partial/moderate assistance G. Lower body dressing 02-Substantial/maximal assistance H. Putting on/taking off footwear - Mobility A. Roll left and right 03-Partial/moderate assistance B. Sit to lying 03-Partial/moderate assistance C. Lying to sitting on side of bed 03-Partial/moderate assistance D. Sit to stand 03-Partial/moderate assistance E. Chair/[id number] transfer 02-Substantial/maximal assistance F. Toilet transfer 02-Substantial/maximal assistance G. Car transfer 10-Not attempted due to environmental limitations I. Walk 10 feet 02-Substantial/maximal assistance J. Walk 50 feet with two turns 88-Not attempted due to medical condition or safety concerns K. Walk 150 feet 88-Not attempted due to medical condition or safety concerns L. Walking 10 feet on uneven surfaces 88-Not attempted due to medical condition or safety concerns M. 1 step (curb) 88-Not attempted due to medical condition or safety concerns N. 4 steps 88-Not attempted due to medical condition or safety concerns O. 12 steps 88-Not attempted due to medical condition or safety concerns P. Picking up object 88-Not attempted due to medical condition or safety concerns - Bladder and Bowel Bladder continence 0-Always continent Bowel continence 0-Always continent - Endurance Poor - Balance Poor - Safety Awareness Poor CURRENT FUNC. DEFICITS: Self-Care, Mobility, Endurance, Balance, and Safety Awareness SIGNATURE PANEL: (CDT)
[2021-04-07] MEDS: ATORVASTATIN 80 MG TAB PO SCH (19:29)
[2021-04-07] MEDS: MELATONIN 3 MG TABLET PO PRN (19:29)
[2021-04-08 06:48] LABS: Absolute Lymphocytes (CBC) 2.7 K/uL (0.7-4.9); Basophils % 0.5 % (0-1.3); Hematocrit 36.1 % (39.6-49.0); Lymphocytes % 29.2 % (15.3-44.8); MPV 7.7 fL (7.6-11.3); RBC Red Blood Cell Count 4.22 M/uL (4.33-5.43)
[2021-04-08 07:03] LABS: Albumin 2.9 g/dL (3.4-5.0); Magnesium 1.9 mg/dL (1.8-2.4); Potassium 4.2 mmol/L (3.5-5.1); Prealbumin 22.9 mg/dL (20-40)
[2021-04-08] MEDS: INSULIN -REGULAR HUMAN 50 UNIT/0.5 ML ML SQ SCH ×4 (07:30→19:36)
[2021-04-08] MEDS: carvediloL 6.25 MG TAB PO SCH ×2 (07:51→19:35)
[2021-04-08] MEDS: lisinopriL 20 MG TAB PO SCH ×2 (07:52→19:35)
[2021-04-08] MEDS: NPH (HUMAN) 100 UNITS/ML INSULIN SQ SCH ×2 (08:02→19:35)
[2021-04-08] MEDS: APIXABAN 5 MG TABLET PO SCH ×2 (08:03→19:35)
[2021-04-08] MEDS: METFORMIN HCL 500 MG TAB PO SCH ×2 (08:03→16:54)
[2021-04-08] MEDS: FAMOTIDINE 20 MG TAB PO SCH (08:03)
[2021-04-08] MEDS: AMLODIPINE 5 MG TAB PO SCH (08:03)
[2021-04-08] MEDS: cloNIDine HCL 0.1 MG TAB PO PRN (09:05)
[2021-04-08] MEDS ORDERED: cloNIDine HCL 0.1 MG TAB PO ONE (10:23)
[2021-04-08] MEDS ORDERED: CLONIDINE 0.3 MG/PATCH TD SCH (15:00)
[2021-04-08] MEDS: ATORVASTATIN 80 MG TAB PO SCH (19:35)
[2021-04-08] MEDS: MELATONIN 3 MG TABLET PO PRN (19:36)
--- NOTE | 2021-04-08 19:54 | R.PN ---
PROGRESS NOTES ENCOUNTER DATE AND TIME: 04/08/2021 19:50 (CDT) NAME ABBY BO DATE OF : 1960 DATE OF ADMISSION: 03/25/2021 18:41 (CDT) Infarct in the right PonsCHIEF COMPLAINT: Right pontine stroke SUBJECTIVE: Pt denied any depression. Pt denied any Shortness of Breath. CBC with differential is essentially normal. Glucose 147 to 181. UA is normal. Ambulated 350' with standby assistance using a left hemiwalker. Self-propelled wheelchair 500' with standby assistance. VITAL SIGNS Temperature: 97.0 F SBP/DBP: 151/61 Pulse: 62 Resp: 16 MEDICATION ALLERGIES: No Known Drug Allergies (NKDA) ENVIRONMENTAL ALLERGIES: None Known - Substance Allergies None Known - Other Allergies None Known NURSING: - Shower allowing shower - Bladder care per protocol - Skin care per protocol PRECAUTIONS: - Weight Bearing Precaution WBAT left LE ACTIVITIES OOB only with supervision THERAPIES: - Occupational Therapy Cognitive Retraining. Visual Perceptual Training. - Dietary and Nutrition Adequate Nutrition. Nutritional Education. Nutritional Supplements. - Speech Therapy Cognitive Training. Expressive Language Skills. Memory Strategies. Receptive Language Skills. Speech Intelligibility Training. PHYSICAL EXAM - Gen Alert and awake Lying in bed No apparent distress Oriented to: person, time, and place - Skin No breakdown Normacephalic - Eyes No abnormalities - ENMT No abnormalities - Neck No abnormalities - CVS RRR - Chest Clear - Abd + bowel sounds - GI Soft Deferred - No abnormalities - Ext no edema - MSK 3-4/5 weakness in left lower extremity. - Neuro 3-4/5 strength left lower extremity. - Psych No abnormalities ASSESSMENT: Pt. is a 61 yo Right-handed male.On 03/20/2021 Pt. presented to [facility] with sudd en onset of left-side weakness.On 03/20/2021 he was admitted to [facility] with diagnosis Inf arct in the right Maribel.His impairment category is Stroke 01 - Left Body (Right Brain) (01.1).Pre-mor bidly, Pt. was independent/mod-I in Transfers Control, Locomotion, Self-Care, Social Cognition, Commu nication, and Sphincter Control; and he had good Transfers Control and Locomotion.Currently, he has d eficits of Transfers Control, Safety Awareness, Locomotion, Balance, Self-Care, Social Cognition, and Communication.Pt. is now referred to [facility] for acute in-patient rehabili tation in order to maximize patient's functional independence in activities of daily living, strength , ROM, and mobility.- Rehab Goal Patient has realistic goal of being discharged at assistance level 6-Shayan to reside at Home with Fam chantelle/Relatives. MDM/PLAN: - Physical Therapy Gait dysfunction - to improve, our physical therapists will perform initial evaluation of pt's statu s upon admission and devise an individualized program for Gait Training, and Wheel Chair mobility Inability to transfer - to improve, our physical therapists will perform initial evaluation of pt's status upon admission and devise an individualized program for Bed mobility Need for home safety evaluation - to improve, our physical therapists will perform initial evaluatio n of pt's status upon admission and devise an individualized program for Home Evaluation Need in caregiver upon discharge - to improve, our physical therapists will perform initial evaluati on of pt's status upon admission and devise an individualized program for Caregiver Training New precaution - to improve, our physical therapists will perform initial evaluation of pt's status upon admission and devise an individualized program for Patient precaution education Poor balance - to improve, our physical therapists will perform initial evaluation of pt's status up on admission and devise an individualized program for Balance Training Weakness - to improve, our physical therapists will perform initial evaluation of pt's status upon a dmission and devise an individualized program for Aquatic Therapy, Neuromuscular Reeducation, and Str engthening Achieving independence - to improve, our physical therapists will perform initial evaluation of pt's status upon admission and devise an individualized program for Community Reintegration Activities - Occupational Therapy ADL deficits - to improve, our occupation therapists will perform initial evaluation of pt's status upon admission and devise an individualized program for Bathing, Bed mobility, Community Reintegratio n, Cooking, Dressing, Eating, Fine Motor Skills, Grooming, Homemaking, Kitchen Mobility, Laundry, Pat ient Education, Safety Awareness, Splinting - Positioning, Transfers(Toilet, Tub, Shower), and Wheel Chair Management Cognitive deficits - to improve, our occupation therapists will perform initial evaluation of pt's s tatus upon admission and devise an individualized program for Cognition - orientation Need for home care music therapist - to improve, our occupation therapists will perform initial evaluation of pt's status upon admission and devise an individualized program for Caregiver Training Weakness - to improve, our occupation therapists will perform initial evaluation of pt's status upon admission and devise an individualized program for Aquatic Therapy, Balance, Endurance, UE ROM, and UE strengthening - Other See attached MAR (Medication Administration Record) - Diet Type Continue Regular - Diet - Liquid Texture Continue Regular - Tube Feed Continue N/A - Bladder care per protocol - Weight Bearing Precaution WBAT left LE - Skin care per protocol - Diet - Solid Texture Continue Regular - Shower allowing shower for Dementia, TBI, Stroke, or others FUNCTIONAL STATUS: UPDATED AT WEEKLY TEAM CONFERENCE - Bladder Same accident frequency: 7-Ind - No accidents in the past 7 days - Bowel Same accident frequency: 7-Ind - No accidents in the past 7 days - Walking Same score based on distance walked: 1(<=50ft) FUNCTIONAL STATUS: - Self-Care A. Eating Shayan B. Grooming Michel C. Bathing modA D. Dressing - Upper Michel E. Dressing - Lower modA F. Toileting modA - Sphincter Control G. Bladder control sup H. Bowel control Shayan - Transfers Control I. Bed/Chair/Wheelchair modA J. Toilet Michel K. Tub/Shower modA - Locomotion L. Walk/Wheelchair (B) modA M. Stairs maxA - Communication N. Comprehension (B) sup O. Expression (B) sup - Social Cognition P. Social Interaction Shayan Q. Problem Solving modA R. Memory Michel - Endurance Fair - Balance Poor - Safety Awareness Poor QI SCORES: - Self-Care A. Eating 03-Partial/moderate assistance B. Oral hygiene 03-Partial/moderate assistance C. Toileting hygiene 02-Substantial/maximal assistance E. Shower/bathe self 01-Dependent F. Upper body dressing 03-Partial/moderate assistance G. Lower body dressing 02-Substantial/maximal assistance H. Putting on/taking off footwear - Mobility A. Roll left and right 03-Partial/moderate assistance B. Sit to lying 03-Partial/moderate assistance C. Lying to sitting on side of bed 03-Partial/moderate assistance D. Sit to stand 03-Partial/moderate assistance E. Chair/lqc-cl-alcuz transfer 02-Substantial/maximal assistance F. Toilet transfer 02-Substantial/maximal assistance G. Car transfer 10-Not attempted due to environmental limitations I. Walk 10 feet 02-Substantial/maximal assistance J. Walk 50 feet with two turns 88-Not attempted due to medical condition or safety concerns K. Walk 150 feet 88-Not attempted due to medical condition or safety concerns L. Walking 10 feet on uneven surfaces 88-Not attempted due to medical condition or safety concerns M. 1 step (curb) 88-Not attempted due to medical condition or safety concerns N. 4 steps 88-Not attempted due to medical condition or safety concerns O. 12 steps 88-Not attempted due to medical condition or safety concerns P. Picking up object 88-Not attempted due to medical condition or safety concerns - Bladder and Bowel Bladder continence 0-Always continent Bowel continence 0-Always continent - Endurance Poor - Balance Poor - Safety Awareness Poor CURRENT FUNC. DEFICITS: Self-Care, Mobility, Endurance, Balance, and Safety Awareness SIGNATURE PANEL: (CDT)
[2021-04-09] MEDS: INSULIN -REGULAR HUMAN 50 UNIT/0.5 ML ML SQ SCH ×2 (06:51→11:30)
[2021-04-09 07:53] VITALS: TEMP 96.9
[2021-04-09] MEDS: lisinopriL 20 MG TAB PO SCH (08:06)
[2021-04-09] MEDS: APIXABAN 5 MG TABLET PO SCH (08:06)
[2021-04-09] MEDS: FAMOTIDINE 20 MG TAB PO SCH (08:07)
[2021-04-09] MEDS: NPH (HUMAN) 100 UNITS/ML INSULIN SQ SCH (08:07)
[2021-04-09] MEDS: carvediloL 6.25 MG TAB PO SCH (08:07)
[2021-04-09] MEDS: METFORMIN HCL 500 MG TAB PO SCH (08:07)
[2021-04-09] MEDS: AMLODIPINE 5 MG TAB PO SCH (09:33)
--- NOTE | 2021-04-09 09:33 | P.RH.PN ---
Estimated Length of Stay: 17 Expected Discharge Date: 04/11/21 Discharge Disposition Plan: Home Family Support: Yes Vital Signs: Last Vital Signs Temp 96.9 F 04/09/21 07:52 Pulse 64 04/09/21 08:07 Resp 18 04/09/21 07:52 BP 181/75 H 04/09/21 08:07 Pulse Ox 98 04/09/21 07:52 Laboratory: Laboratory Last Values WBC 9.40 K/uL (4.3-10.9) 04/08/21 06:19 RBC 4.22 M/uL (4.33-5.43) L 04/08/21 06:19 Hgb 12.0 g/dL (13.6-17.9) L 04/08/21 06:19 Hct 36.1 % (39.6-49.0) L 04/08/21 06:19 MCV 85.7 fL (80-100) 04/08/21 06:19 MCH 28.5 pg (27.0-35.0) 04/08/21 06:19 MCHC 33.3 g/dL (32.0-36.0) 04/08/21 06:19 RDW 13.5 % (12.1-15.2) 04/08/21 06:19 Plt Count 399 K/uL (152-406) D 04/08/21 06:19 MPV 7.7 fL (7.6-11.3) 04/08/21 06:19 Neutrophils % 60.5 % (41.7-73.7) 04/08/21 06:19 Lymphocytes % 29.2 % (15.3-44.8) 04/08/21 06:19 Monocytes % 7.5 % (3.3-12.3) 04/08/21 06:19 Eosinophils % 2.3 % (0-4.4) 04/08/21 06:19 Basophils % 0.5 % (0-1.3) 04/08/21 06:19 Absolute Neutrophils 5.7 K/uL (1.8-8.0) 04/08/21 06:19 Absolute Lymphocytes 2.7 K/uL (0.7-4.9) 04/08/21 06:19 Absolute Monocytes 0.7 K/uL (0.1-1.3) 04/08/21 06:19 Absolute Eosinophils 0.2 K/uL (0-0.5) 04/08/21 06:19 Absolute Basophils 0.0 K/uL (0-0.5) 04/08/21 06:19 Sodium 141 mmol/L (136-145) 04/08/21 06:19 Potassium 4.2 mmol/L (3.5-5.1) 04/08/21 06:19 Chloride 105 mmol/L (98-107) 04/08/21 06:19 Carbon Dioxide 31 mmol/L (21-32) 04/08/21 06:19 BUN 18 mg/dL (7-18) 04/08/21 06:19 Creatinine 0.93 mg/dL (0.55-1.3) 04/08/21 06:19 Estimated GFR 83 mL/min (=/>90) L 04/08/21 06:19 Glucose 139 mg/dL (74-106) H 04/08/21 06:19 POC Glucose 120 mg/dL (65-120) 04/09/21 06:50 Calcium 8.9 mg/dL (8.5-10.1) 04/08/21 06:19 Magnesium 1.9 mg/dL (1.8-2.4) 04/08/21 06:19 Albumin 2.9 g/dL (3.4-5.0) L 04/08/21 06:19 Prealbumin 22.9 mg/dL (20-40) 04/08/21 06:19 Urine Color Yellow (Yellow) 03/26/21 16:40 Urine Appearance Clear (Clear) 03/26/21 16:40 Urine pH 6.0 (5.0-7.0) 03/26/21 16:40 Ur Specific [place] 1.020 (1.005-1.030) 03/26/21 16:40 Glucose (UA)(Auto) Trace (Negative) 03/26/21 16:40 Urine Ketones Negative (Negative) 03/26/21 16:40 Urine Blood Negative (Negative) 03/26/21 16:40 Urine Nitrite Negative (Negative) 03/26/21 16:40 Urine Bilirubin Negative (Negative) 03/26/21 16:40 Urine Urobilinogen 1.0 mg/dL (0.2-1.0) 03/26/21 16:40 Ur Leukocyte Esterase Negative (Negative) 03/26/21 16:40 Urine RBC None seen /HPF (NONE SEEN) 03/26/21 16:40 Urine WBC <5 /HPF (<5) 03/26/21 16:40 Ur Squamous Epith Cells <5 /HPF (NONE SEEN) 03/26/21 16:40 Urine Bacteria <20 /HPF (NONE SEEN) 03/26/21 16:40 Hyaline Casts 0-5 /LPF (NONE SEEN) 03/26/21 16:40 Urine Mucus Light /HPF (NONE SEEN) 03/26/21 16:40 Urine Culture Reflexed Not needed 03/26/21 16:40 Urine Total Protein 1+ (Negative) H 03/26/21 16:40 SARS-CoV-2 RNA (RT-PCR) Negative (NEGATIVE) 03/25/21 14:35 Weight: 163 lb 9.6 oz Wound Present: No Closed Surgical Incision Present: No Negative Pressure Wound Therapy Present: No Physician Update: Labs reviewed and are stable. He is walking 250' with standby assistance. He has poor awareness of his high fall risk. He is at standby assistance with his ADLs. He will require a hemiwalker. Comment: Skin intact. Functional Improvement: Patient has shown significant improvement w/ L LE strength, and motor control during gait tx. Patient was not progressed to quad cane or SPC, instead has worked to improve technique of using a noreen walker. Patient is currently ambulating 250 ft. using noreen walker w/ SBA. Summary: Patient's care plan and assisted goals have been reviewed and revised as necessary. Please see the Rehabilitation Signature page for all necessary signatures.
[2021-04-09 09:39] VITALS: BP 146/64
== END 2021-04-09 14:15 | disposition home or self-care (01) | DRG 57 ==
LOC: 5TH 13:28
PROVIDERS: ADMIT Psychiatry & Neurology Neurology with Special Qualifications in Child Neurology; ATTEND Psychiatry & Neurology Neurology with Special Qualifications in Child Neurology
DX: I69.354 Hemiplegia and hemiparesis following cerebral infarction affecting left non-dominant side (principal); I10 Essential (primary) hypertension; E11.9 Type 2 diabetes mellitus without complications; Z20.822 Contact with and (suspected) exposure to COVID-19
CPT/HCPCS: 36415; 80048; 81001; 82040; 82947; 83735; 84134; 85025; 87077; 87086; 87088; 87186; 92523; 97032; 97110; 97112; 97116; 97127; 97161; 97530; 97542; J1815; U0003

== ENCOUNTER 2021-04-30 15:25 | Emergency (ER) | payer BC ==
--- OUTSIDE RECORDS SUMMARY | 2021-04-30 15:29 | XMS REPORT | Continuity of Care Document ---
:1960 Author Organization [facility] t Address [address] [place] [address] Care Team Providers Name Role Phone Carrie Medina Attending Clinician Bao Alvarado Attending Clinician Vannessa Medina Admitting Clinician Bao Alvarado Admitting Clinician Problems Condition Condition Condition Status Onset Resolution Last Treating Co mments Source Name Details Category Date Date Treatment Clinician Date ANDRZEJ Diagnosis Active 2021-03-22 Memoria BILLING 03-20 06:09:00 l 00:00: [place] ANDRZEJ 00 BILLING Active 03/20/2021 [facility] CVA Diagnosis Active 2021-03-20 Mem oria 03-19 02:57:00 l CVA 00:00: [place] 00 Active 03/19/2021 [facility] ACUTE Diagnosis Active 2021-03-31 Mem oria ISCHEMIC 03-19 21:59:00 l STROKE ACUTE 00:00: Fausto ISCHEMIC 00 STROKE Active 03/19/2021 [facility] CEREBRAL Diagnosis Active 2021-03-31 M emoria INFARCTION 21:59:00 l , CEREBRAL Eleuterio n UNSPECIFIE INFARCTION D , UNSPECIFIE D Active [facility] Allergies, Adverse Reactions, Alerts This patient has no known allergies or adverse reactions. Social History Smoking Status Start Date Stop Date Source Social History [facility] Medications Ordered Filled Start Stop Current Ordering Indication Dosage Frequency Signature Comments Components Source Medication Medication Date Date Medication? Clinician (SIG) Name Name lisinopril Yes 20 mg = 1 Me moria 20 mg oral 6-17 tab, PO, l tablet 16:13: Q12H, 0 Fausto 00 Refill(s) Metformin No Notes: Memori a hydrochlori 6-17 Same as l de 1000 MG 14:02: Glucophage H ermann Oral Tablet 00 insulin Yes 10 unit, Memori a isophane 6-17 SUB-Q, l (NPH) 100 13:56: BID, 0 Eleuterio n units/mL 00 Refill(s) human recombinant subcutaneou s suspension Acetaminoph Yes 100.4 F, M emoria en 325 MG 6-17 0 l Oral Tablet 13:54: Refill(s) H ermann 00 apixaban 5 Yes 5 mg = 1 Mem oria mg oral 6-17 tab, PO, l tablet 13:54: Q12H, For Eleuterio n 00 Atrial Fibrillati on, 0 Refill(s) atorvastati Yes 80 mg = 1 M emoria n 80 mg 6-17 tab, PO, l oral tablet 13:54: Bedtime, 0 Fausto 00 Refill(s) carvedilol Yes 3.125 mg = M emoria 3.125 mg 6-17 1 tab, PO, l oral tablet 13:54: Q12H, 0 Her venegas 00 Refill(s) Docusate Yes 1 tab, PO, Mem oria Sodium 50 6-17 BID, 0 l MG / 13:54: Refill(s) Fausto sennosides, 00 ALF 8.6 MG Oral Tablet lisinopril No 10 mg = 1 Me moria 10 mg oral 6-17 tab, PO, l tablet 13:54: Q12H, 0 [place] 00 Refill(s) Metformin Yes 1,000 mg = Me moria hydrochlori 6-17 1 tab, PO, l de 1000 MG 13:54: BID, 0 Lynda nn Oral Tablet 00 Refill(s) POLYETHYLEN Yes 17 gm, PO, Memoria E GLYCOL 6-17 BID, 0 l 3350 142 13:54: Refill(s) Herm pallavi MG/ML Oral 00 Solution Lisinopril No Notes: Memor ia 6-16 (Same as: l 18:35: Prinivil, [place] 00 Zestril) insulin, No Notes: Memoria isophane 6-15 (Same as: l 22:00: Humulin N) Roll in palms of hands gently; Do not shake vigorously . WASTE: F/P - Black; E - Municipal Trash Bin Stable for 31 days at room temperatur e Expires in days from ____Date Eliquis No Notes: Memoria 6-14 Same as: l 14:00: Eliquis Insulin No Notes: Memoria Lispro 6-14 (Same as: l 04:20: Humalog) Roll in palms of hands gently; Do not shake vigorously . WASTE: F/P - Black; E - Municipal Trash Bin Stable for 28 days at room temperatur e. Expires in days from ____Date Hydralazine No Notes: Jamison yury 6-13 (Same as: l 21:33: Apresoline [place] 00 ) Push over 5 minutes heparin No Notes: Memoria 6-13 porcine l 21:00: heparin Lisinopril No Notes: Memor ia 6-13 (Same as: l 19:39: Prinivil, Zestril) Labetalol No 10 mg, 2 Jamison yury 6-13 mL, Route: l 16:03: IVP, Drug form: INJ, Q3H, Dosing Weight 70, kg, PRN Hypertensi on, Start date: 03/21/21 11:03:00 CDT, Duration: 30 day, Stop date: 04/20/21 11:02:00 CDT, 0 Coreg No Notes: Memoria 6-13 Give with l 14:00: food. [place] 00 (Same As: Coreg) Aspirin 81 No Notes: Do Me moria MG Enteric 6-13 not crush l Coated 14:00: or chew. [place] Tablet 00 (Same As: Ecotrin) atorvastati No Notes: Jamison yury n 6-13 Same as l 02:00: Lipitor Tess-Norbora No Tess-Norbor Memoria l 6-12 al, l 19:20: 5mg/1000mg Fausto 00 , PO, Daily, Refill(s) 0 Metoprolol No Notes: Memor ia 6-12 (Same as: l 18:21: Lopressor) Push over 2 minutes Magnesium No Notes: Memori a Sulfate -12 WASTE: F/P l 18:20: - Sink; E - Municipal Trash Bin Dextrose No 12.5 gm, Memor ia 50% Syringe -12 25 mL, l (D50W) 16:23: Route: IVP, Drug Form: INJ, Dosing Weight 70, kg, PRN, PRN Blood Glucose Results, Start date: 03/20/21 11:23:00 CDT, Duration: 30 day, Stop date: 04/19/21 11:22:00 CDT, 0 Glucagon No 1 mg, Memoria -12 Route: IM, l 16:23: Drug form: PDR/INJ, PRN, Dosing Weight 70, kg, PRN Blood Glucose Results, Start date: 03/20/21 11:23:00 CDT, Duration: 30 day, Stop date: 04/19/21 11:22:00 CDT, 0 Insulin No Notes: Memoria Lispro -12 (Same as: l 16:23: Humalog) Roll in palms of hands gently; Do not shake vigorously . WASTE: F/P - Black; E - Municipal Trash Bin Stable for 28 days at room temperatur e. Expires in days from ____Date Saline No Notes: Memoria Flush 0.9% 6-12 (Same as: l 14:00: BD Posiflush) Docusate No Notes: Memoria Sodium 50 6-12 (Same as l MG / 14:00: Senokot-S) sennosides, 00 Equiv. to ALF 8.6 MG Amada-Colac Oral Tablet e. Miralax No Notes: Memoria - Dissolve l 14:00: in 8 oz of water or juice. (Same as: Miralax) Dextrose No 12.5 gm, Memor ia 50% Syringe 03-20 25 mL, l (D50W) 08:17: Route: Fausto 00 IVP, Drug Form: INJ, Dosing Weight 70, kg, PRN, PRN Blood Glucose Results, Start date: 03/20/21 3:17:00 CDT, Duration: 30 day, Stop date: 04/19/21 3:16:00 CDT, 0 Glucagon No 1 mg, Memoria 03-20 Route: IM, l 08:17: Drug form: PDR/INJ, PRN, Dosing Weight 70, kg, PRN Blood Glucose Results, Start date: 03/20/21 3:17:00 CDT, Duration: 30 day, Stop date: 04/19/21 3:16:00 CDT, 0 Insulin No Notes: Memoria regular 03-20 (Same as: l 08:17: Humulin R) Roll in palms of hands gently; Do not shake vigorously . WASTE: F/P - Black; E - Municipal Trash Bin Stable for 31 days at room temperatur e Expires in days from ____Date Sodium No 50 mL, Memoria Chloride 03-20 62.4 l 0.9% 07:25: ml/hr, Fausto (Flush) IV 00 Route: IV, ONCE, Dosing Weight 70 kg, Start date: 03/20/21 2:25:00 CDT, Stop date: 03/20/21 2:25:00 CDT, For line flush AFTER alteplase (tPA) infusion. Alteplase No 6.9 mg, Memor ia 12 Route: IV, l 07:24: ONCE, [place] 00 Dosing Weight 77, kg, Priority: STAT, Start date: 03/20/21 2:24:00 CDT, Stop date: 03/20/21 2:24:00 CDT Acetaminoph No Notes: Do M emoria en 03-20 not exceed l 07:19: 4 gm/day. Fausto 00 (Same as: Tylenol) Saline No Notes: Memoria Flush 0.9% 6-12 (Same as: l 07:19: BD [place] 00 Posiflush) Cardene 40 No Notes: Memor ia mg in NS 03-20 Same as: l 200 mL 06:44: Cardene Fausto (Titrate.) 00 Concentrat IV 40 mg ion: (0.2 mg /1 ml ) Iohexol No 100 mL, Memoria 12 Route: l 06:43: IVP, Drug Form: SOLN, Dosing Weight 70, kg, ONCALL, STAT, Start date: 03/20/21 1:43:00 CDT, Duration: 1 doses or times, Dose = 2.2ml/kg, Max dose = 100ml -- "To be infused by Radiology Staff ONLY" Nicardipine No 20 mg, 200 Memoria 6-12 mL, Rate: l 06:41: Titrate, [place] Start Dose: 5 mg/hr, Titration: 2.5 mg/hr every 15 minutes, Goal(s): BP greater than 180 but less than 210, Max Dose: 15 mg/hr, Route: IV, Dosing Weight 70 kg, Total Volume: 200, Start date: 03/20/21 1:41:00 CDT, Duration.. . Saline No Notes: Memoria Flush 0.9% 6-12 (Same as: l 06:39: BD Fausto 00 Posiflush) Saline No Notes: Memoria Flush 0.9% 6-12 (Same as: l 06:35: BD Fausto 00 Posiflush) Vital Signs Vital Name Observation Time Observation Value Comments Source Temperature Oral (F) 2021-03-25 12:52:00 97.9 F [facility] Faust[facility] Heart Rate 2021-03-25 12:52:00 Tram Lambert Respitory Rate 2021-03-25 12:52:00 Moises al Faust[place] Systolic (mm Hg) 2021-03-25 12:52:00 Jamison Lambert Diastolic (mm Hg) 2021-03-25 12:52:00 Mem orial [place] Temperature Oral (F) 2021-03-25 08:35:00 98.8 F [facility] Heart Rate 2021-03-25 08:35:00 [facility] [place] Respitory Rate 2021-03-25 08:35:00 Memori al Faust[place] Systolic (mm Hg) 2021-03-25 08:35:00 Jamison rial [place] Diastolic (mm Hg) 2021-03-25 08:35:00 Mem orial [place]ust[place] Temperature Oral (F) 2021-03-25 05:42:00 98.2 F [facility] Heart Rate 2021-03-25 05:42:00 [facility] [place] Respitory Rate 2021-03-25 05:42:00 Memori al [place] Systolic (mm Hg) 2021-03-25 05:42:00 Jamison rial Faust[place] Diastolic (mm Hg) 2021-03-25 05:42:00 Mem orial [place]ust[place] Respitory Rate 2021-03-22 07:00:00 Memori al [place] Systolic (mm Hg) 2021-03-22 07:00:00 Jamison rial [place] Diastolic (mm Hg) 2021-03-22 07:00:00 Mem orial [place] Respitory Rate 2021-03-22 06:00:00 Memori al [place] Systolic (mm Hg) 2021-03-22 06:00:00 Jamison rial Fausto Diastolic (mm Hg) 2021-03-22 06:00:00 Mem orial [place] Respitory Rate 2021-03-22 05:00:00 Memori al Faust[place] Systolic (mm Hg) 2021-03-22 05:00:00 Jamison rial [place] Diastolic (mm Hg) 2021-03-22 05:00:00 Mem orial [place] Temperature Oral (F) 2021-03-22 04:33:00 99.0 F [facility] Temperature Oral (F) 2021-03-22 00:59:00 99.7 F [facility] Temperature Oral (F) 2021-03-21 13:06:00 97.7 F [facility] Heart Rate 2021-03-20 17:34:00 [facility] [place] Heart Rate 2021-03-20 17:32:00 [facility] [place] Heart Rate 2021-03-20 17:30:00 [facility] [place] Height 2021-03-20 06:36:00 165.1 cm [facility] [place] BMI Calculated 2021-03-20 06:36:00 Memori al [place] Weight 2021-03-20 06:36:00 [facility] [place] Height 2021-03-20 06:27:00 157.48 cm [facility] [place] BMI Calculated 2021-03-20 06:27:00 Moises hughes [facility] Weight 2021-03-20 06:27:00 [facility] Procedures This patient has no known procedures. Encounters Start End Encounter Admission Attending Care Care Encounter Source Date/Time Date/Time Type Type Clinicians Facility Department ID 2021-03-20 Inpatient E [facility] [id number] [facility] 02:19:00 2021-03-20 2021-03-25 Outpatient Carol [facility] [id number] 01:27:00 11:41:00 Carrie Hurd 67 2021-03-20 2021-03-20 Outpatient Jenny [facility] [id number] 01:27:00 01:27:00 Torres Gore 67 2021-03-20 2021-03-20 Outpatient [facility] [id number] [facility] 00:00:00 00:00:00 Results Test Description Test Time Test Comments Results Result Comments Source CHEM PANEL 2021-03-25 254 [facility] Lynda nn 14:05:00 CHEM PANEL 2021-03-25 24 [facility] Lynda nn 14:05:00 CHEM PANEL 2021-03-25 1.07 [facility] Lynda nn 14:05:00 CHEM PANEL 2021-03-25 136 [facility] Lynda nn 14:05:00 CHEM PANEL 2021-03-25 4.3 [facility] Lynda nn 14:05:00 CHEM PANEL 2021-03-25 105 [facility] Lynda nn 14:05:00 CHEM PANEL 2021-03-25 27 [facility] Lynda nn 14:05:00 CHEM PANEL 2021-03-25 8.5 [facility] Lynda nn 14:05:00 CHEM PANEL 2021-03-25 8.3 [facility] Lynda nn 14:05:00 CHEM PANEL 2021-03-25 75 [facility] Lynda nn 14:05:00 CHEM PANEL 2021-03-22 171 [facility] Lynda nn 10:28:00 CHEM PANEL 2021-03-22 21 [facility] Lynda nn 10:28:00 CHEM PANEL 2021-03-22 0.93 [facility] Lynda nn 10:28:00 CHEM PANEL 2021-03-22 138 [facility] Lynda nn 10:28:00 CHEM PANEL 2021-03-22 3.8 [facility] Lynda nn 10:28:00 CHEM PANEL 2021-03-22 105 [facility] Lynda nn 10:28:00 CHEM PANEL 2021-03-22 26 [facility] Lynda nn 10:28:00 CHEM PANEL 2021-03-22 8.4 [facility] Lynda nn 10:28:00 CHEM PANEL 2021-03-22 10.8 [facility] Lynda nn 10:28:00 CHEM PANEL 2021-03-22 88 [facility] Lynda nn 10:28:00 HEMATOLOGY 2021-03-22 57.2 [facility] Lynda nn 10:28:00 HEMATOLOGY 2021-03-22 32.3 [facility] Lynda nn 10:28:00 HEMATOLOGY 2021-03-22 8.1 [facility] Lynda nn 10:28:00 HEMATOLOGY 2021-03-22 1.9 [facility] Lynda nn 10:28:00 HEMATOLOGY 2021-03-22 0.5 [facility] Lynda nn 10:28:00 HEMATOLOGY 2021-03-22 4.9 [facility] Lynda nn 10:28:00 HEMATOLOGY 2021-03-22 2.7 [facility] Lynda nn 10:28:00 HEMATOLOGY 2021-03-22 0.7 [facility] Lynda nn 10:28:00 HEMATOLOGY 2021-03-22 0.2 [facility] Lynda nn 10:28:00 HEMATOLOGY 2021-03-22 8.5 [facility] Lynda nn 10:28:00 HEMATOLOGY 2021-03-22 4.03 [facility] Lynda nn 10:28:00 HEMATOLOGY 2021-03-22 12.1 [facility] Lynda nn 10:28:00 HEMATOLOGY 2021-03-22 34.4 [facility] Lynda nn 10:28:00 HEMATOLOGY 2021-03-22 85.4 [facility] Lynda nn 10:28:00 HEMATOLOGY 2021-03-22 10:28:00 Test Item Value Reference Range Interpretation Comme nts MCH (test code = MCH) 30.2 pg 27.0-31.0 [facility] GrzbisnLKSIPORVID3774-13-67 10:28:0035.3[facility]annHEMATOLOGY 2021-03-22 10:28:0013.8[facility] WazvcikDUYRJPLUOU0290-21-29 10:28:83063Vrnncyjj HimjwsfBTRCECGMJG9018-16-58 10:28:007.8[facility]annURINE AND JWKRG6313-28-77 22:21:00Clear (03/21/21 5:21 PM)[facility] [id number] 22:21:00>=1.030 *ABN*(03/21/21 5:21 PM)[facility] STOOL 2021-03-21 22:21:00 Test Item Value Reference Range Interpretation Comments UA pH (test code = UA pH) 5.5 1 5.0-8.0 [facility] [id number] 22:21:05646 *ABN*(03/21/21 5:21 PM) [facility] [id number] 22:21:00Trace *ABN*(03/21/21 5:21 PM) [facility] [id number] 22:21:00Negative *NA*(03/21/21 5:21 PM) [facility] MKKJV5231-03-04 22:21:00Negative (03/21/21 5:21 PM) [facility] AJREH5766-20-52 22:21:000.2[facility] ABDKF1782-22-39 22:21:00Negative (03/21/21 5:21 PM)[facility] GOJMM2901-91-92 22:21:00Negative (03/21/21 5:21 PM)[facility] CFLKI9513-82-53 22:21:003[facility] HNHSU0194-51-73 22:21:001 [facility] UBUKE9621-04-69 22:21:0012[facility] YKVFU0864-60-40 22:21:00Yellow *NA*(03/21/21 5:21 PM)[facility]annCHEM PANEL 2021-03-21 10:10:91842Gnbieseq HermannCHEM RZBRP0766-00-22 10:10:0012[facility]annCHEM XEBIR5346-17-46 10:10:000.88[facility] HermannCHEM MSVQZ5720-25-69 10:10:87078Odgdfoae HermannCHEM PSJET8315-77-87 10:10:003.9[facility] HermannCHEM NDDZU6155-06-57 10:10:48246Gzfqxtwz HermannCHEM CKRMM1927-36-57 10:10:0027 [facility]annCHE[facility] GTFUR1623-44-60 10:10:008.6[facility] HermannCHEM PANEL 2021-03-21 10:10:008.9[facility] HermannCHEM WYRSC3240-49-49 10:10:0093[facility]annCHEM BQTBJ0776-85-03 10:10:002.3[facility] HermannCHEM VNGMK3225-75-98 10:10:002.5[facility] WwdyyslPAVVMZSPZF6852-14-21 10:10:0058.0[facility] FVCSVGJYJR2213-43-23 10:10:0033.6[facility] YqvsryjBHBDDKGWNN6285-63-39 10:10:00 6.7[facility] FasqgowWMASFYFZBG2257-95-90 10:10:001.2[facility] HermannHEMATOLOGY 2021-03-21 10:10:000.5[facility] DeastehJBPNXPIJNL8075-00-86 10:10:005.1[facility] IduznlgPDRHPRGCOS3326-39-56 10:10:003.0[facility] XcglkquBNICQTERTH5592-45-55 10:10:000.6[facility] GehjwwdCCQBCTNAGZ5115-59-88 10:10:000.1[facility] [place] RRXFLOPBEN4396-31-51 10:10:008.8[facility] ZaphszlKRBRRHSYHX6796-44-75 10:10:00 4.28[facility] EtptpuzBDZLQKIFZN2061-84-24 10:10:0012.7[facility] HermannHEMATOLOGY 2021-03-21 10:10:0037.2[facility] AzgbgpwADFANKLLKE0834-34-47 10:10:0086.8[facility] MjrwntiTBLFDEWFOU0641-08-03 10:10:00 Test Item Value Reference Range Interpretation Comments MCH (test code = MCH) 29.6 pg 27.0-31.0 [facility] BireplmMTCGULAQWV6362-12-15 10:10:0034.1[facility]annHEMATOLOGY 2021-03-21 10:10:0013.9[facility] GwiepjsYNDJOQRXAS9947-14-30 10:10:89835Fvkmguon ApitqadLBFXBZNHLV1455-10-20 10:10:008.1[facility] HermannPARATHYROID PROFILE 2021-03-21 10:10:001.07[facility] HermannPARATHYROID TKDSOCO9399-40-70 10:10:00 1.10[facility] HermannCHEM LMLJX4081-62-79 13:37:001.9[facility] HermannCHEM PANEL 2021-03-20 13:37:003.4[facility] YbddklpGOKNMC2385-00-48 13:37:49175Kmliyloz BezypanBYKTVP0020-17-34 13:37:93442Xagecukr JwtmpewUAQAHH0900-25-23 13:37:0043 [facility] VralfxwRTPCJI1566-29-23 13:37:00 Test Item Value Reference Range Interpretation Comments CHD Risk (test code = CHD Risk) 6.28 1 4.00-7.30 [facility] EkcygswJWMGOF5538-21-75 13:37:81361Ozqggedr PbpzzxsISIRZN0834-25-51 13:37:00 Test Item Value Reference Range Interpretation Comments VLDL (test code = VLDL) 48 1 [facility] WKXSCD6282-63-99 09:58:00Negative *NA*(03/20/21 4:58 AM) [facility] KZQZRE3211-27-10 09:58:00Negative *NA*(03/20/21 4:58 AM) [facility] MVJQGR2737-19-19 09:58:00Negative *NA*(03/20/21 4:58 AM) [facility] VWWRPH5950-12-44 09:58:00Negative *NA*(03/20/21 4:58 AM) [facility] QTINDR9893-67-33 09:58:00Negative *NA*(03/20/21 4:58 AM) [facility] IFVQHN3206-32-34 09:58:00Negative *NA*(03/20/21 4:58 AM) [facility] JKAKME5291-03-90 09:58:00Negative *NA*(03/20/21 4:58 AM) [facility] IJAJTW9731-05-95 09:58:00See Note (03/20/21 4:58 AM)[facility] TrefbpyVVDEFAFCDI3428-12-64 09:26:00Not Detected (03/20/21 4:26 AM)[facility] HermannCARDIAC WJDOWAH7297-79-28 06:37:0071[facility] HermannCARDIAC ENZYMES 2021-03-20 06:37:00<0.02[facility] HermannCHEM NNBUV5898-89-55 06:37:93710 [facility]annCHEM VBZMI8383-39-98 06:37:0020[facility] HermannCHEM PANEL 2021-03-20 06:37:001.18[facility] HermannCHEM DQAAP9293-15-75 06:37:52204Orjtulrf HermannCHEM IYHJX6440-87-34 06:37:004.0[facility] HermannCHEM DRMGS6230-08-07 06:37:38983Gnlpzmyr HermannCHEM ARNAR3672-49-13 06:37:0027[facility] HermannCHEM MVCWP0507-09-91 06:37:008.2[facility] HermannCHEM SJZSB9944-22-66 06:37:0010.0 [facility]annCHEM GUAIY3254-42-54 06:37:0044[facility] HermannCHEM PANEL 2021-03-20 06:37:007.0[facility] HermannCHEM DOBIU7695-20-75 06:37:002.9[facility] HermannCHEM SCATH3019-26-52 06:37:004.1[facility] HermannCHEM XZNIH2165-00-04 06:37:00 Test Item Value Reference Range Interpretation Comments A/G Ratio (test code = A/G Ratio) 0.7 1 0.7-1.6 [facility]annCHEM RDHYM5503-06-75 06:37:0017[facility] HermannCHEM PANEL 2021-03-20 06:37:0016[facility] HermannCHEM BGXSQ5410-02-47 06:37:48550Wbtmganr HermannCHEM OHUJP5107-75-16 06:37:000.2[facility] HermannCHEM GVAKC1695-21-60 06:37:00<0.1[facility] LgfkdizLKCYFOIUYQ1104-44-57 06:37:0010.5[facility] WYWEOQRLIF2091-62-67 06:37:004.03[facility] VgnxrxzJFBCKGGUUM7120-26-44 06:37:00 11.9[facility] KghmpnrDSWESYNVGW0003-32-86 06:37:0035.3[facility] HermannHEMATOLOGY 2021-03-20 06:37:0087.5[facility] DkrrchlIIMLOCMXJI7331-60-71 06:37:00 Test Item Value Reference Range Interpretation Comments MCH (test code = MCH) 29.4 pg 27.0-31.0 [facility] BmjdbvwIXJJMBVQGS5693-74-70 06:37:0033.6[facility] HermannHEMATOLOGY 2021-03-20 06:37:0013.8[facility] UgpjffmVIZEDBRRWK0034-22-59 06:37:60293Fmvvkuax ZsgkiecULLMCBXZEP1730-48-02 06:37:008.emorial CgyqtmcDMCNLEUJEF7645-21-82 06:37:00 Test Item Value Reference Range Interpretation Comments PT (test code = PT) 11.0 s 12.0-14.7 [facility] MradcfsRZVTVIQXWT6601-55-77 06:37:00 Test Item Value Reference Range Interpretation Comments INR (test code = INR) 0.79 1 0.85-1.17 [facility] TpsknshNLPGIMNBFW5912-95-44 06:37:00<20.0[facility]annHEMATOLOGY 2021-03-20 06:37:0067.6[facility] HgluxbaEKMBKXYFKP7392-44-33 06:37:0025.2[facility] WuuvsauZSTVKIMEIK8813-79-41 06:37:005.5[facility] KnchhrzULMKUKUDMP2337-16-17 06:37:001.0[facility] PkomxykJQTVIWCMUG9290-37-08 06:37:000.7[facility] [place] XWEOWECREA2076-62-34 06:37:007.1[facility] QegixahAQHBHNIHKM1774-05-38 06:37:002.6 [facility] XuaaydrNNSYLKQUQC1883-29-33 06:37:000.6[facility] HermannHEMATOLOGY 2021-03-20 06:37:000.1[facility] QutuqsxERYERNBZOX9050-59-57 06:37:000.1[facility] HermannSPECIAL MMVOMMDVL1912-45-81 06:37:008.3[facility] [place]
--- NOTE | 2021-04-30 19:03 | ER ---
Nurse's Notes [facility] Name: Elias Harvey Age: 61 yrs Sex: Male : 1960 Arrival Date: 04/30/2021 Time: 15:26 Bed 6 Private MD: Diagnosis: Pain in left hand Presentation: 04/30 16:52 Chief complaint: Patient states: Left sided swelling x 1 week and increased pain. kg Coronavirus screen: Client denies travel out of the [place] in the last 14 days. At this time, unable to obtain information related to travel outside the [place] At this time, the client does not indicate any symptoms associated with coronavirus-19. Ebola Screen: Patient negative for fever greater than or equal to 101.5 degrees Fahrenheit, and additional compatible Ebola Virus Disease symptoms Patient denies exposure to infectious person. Patient denies travel to an Ebola-affected area in the 21 days before illness onset. Initial Sepsis Screen: Does the patient meet any 2 criteria? No. Patient's initial sepsis screen is negative. Does the patient have a suspected source of infection? No. Patient's initial sepsis screen is negative. Risk Assessment: Do you want to hurt yourself or someone else? Patient reports no desire to harm self or others. Onset of symptoms was April 2021. 16:52 Method Of Arrival: Ambulatory kg 16:52 Acuity: MULU 3 kg Historical: - Allergies: 16:56 No Known Allergies; kg - Home Meds: 16:59 Eliquis 5 mg oral tab 1 tab 2 times per day [Active]; Clonidine 0.3 mg patch Oral daily kg [Active]; carvedilol 6.25 mg oral tab 1 tab 2 times per day [Active]; metformin 500 mg Oral tab 1 tab 2 times per day [Active]; lisinopril 20 mg Oral tab 1 tab BID [Active]; famotidine 20 mg Oral tab 2 tabs once daily [Active]; atorvastatin 80 mg oral tab 1 tab once daily [Active]; amlodipine 5 mg tab 1 tab once daily [Active]; Humulin N Pen 100 unit/mL (3 mL) Sub-Q inpn after meals [Active]; - PMHx: 16:56 Diabetes mellitus; Hypertensive disorder; kg 16:57 CVA; kg - PSHx: 16:57 None; kg - Immunization history:: Adult Immunizations not up to date, Client reports receiving the 2nd dose of the Covid vaccine, Date received: February 06, 2021. - Social history:: Smoking status: Patient denies any tobacco usage or history of. Patient uses alcohol, occasionally. - Family history:: not pertinent. Screenin:58 Abuse screen: Denies threats or abuse. Nutritional screening: No deficits noted. kg Tuberculosis screening: No symptoms or risk factors identified. Fall Risk None identified. No fall in past 12 months (0 pts). No secondary diagnosis (0 pts). IV access (20 points). Ambulatory Aid- Crutches/Cane/Walker (15 pts). Gait- Impaired (20 pts.). Mental Status- Oriented to own ability (0 pts). Total Barragan Fall Scale indicates No Risk (0-24 pts). Assessment: 17:06 Reassessment: Pt has never taken the Eliquis or insulin and not compliant with other kg medications. Pt also doesn't check his blood sugar at home. . 17:26 General: Appears in no apparent distress. comfortable, Behavior is calm, cooperative, ap3 appropriate for age. Pain: Denies pain. Neuro: Level of Consciousness is awake, alert, obeys commands, Oriented to person, place, time, situation, Appropriate for age. Cardiovascular: Capillary refill < 3 seconds Patient's skin is warm and dry. Respiratory: Airway is patent Respiratory effort is even, unlabored, Respiratory pattern is regular, symmetrical. GI: No signs and/or symptoms were reported involving the gastrointestinal system. : No signs and/or symptoms were reported regarding the genitourinary system. EENT: No signs and/or symptoms were reported regarding the EENT system. Musculoskeletal: Swelling present in left arm. Vital Signs: 16:52 BP 204 / 90; Pulse 77; Resp 20; Temp 98.5(O); Pulse Ox 100% on R/A; Weight 75.02 kg kg (M); Height 5 ft. 3 in. (160.02 cm) (R); Pain 8/10; 16:59 BP 186 / 85; kg 17:15 BP 168 / 83; Pulse 77; Resp 20; Pulse Ox 100% ; sv 18:15 BP 156 / 72; Pulse 63; Resp 20; Pulse Ox 99% ; sv 18:53 BP 154 / 70; Pulse 66; Resp 19; Pulse Ox 100% on R/A; ap3 16:52 Body Mass Index 29.30 (75.02 kg, 160.02 cm) kg ED Course: 15:26 Patient arrived in ED. ds1 16:56 Triage completed. kg 16:58 Patient has correct armband on for positive identification. kg 17:11 Maria Del Carmen Hall MD is Attending Physician. ma2 17:14 Tri Coker, RN is Primary Nurse. ap3 17:27 Patient left arm elevated with the use of blankets, pillow and towels. ap3 18:36 UPPER EXTREMITY VENOUS UNILATE In Process Unspecified. EDMS 18:52 Inserted saline lock: 20 gauge in right antecubital area, using aseptic technique. ap3 Blood collected. 19:24 No provider procedures requiring assistance completed. IV discontinued, intact, em bleeding controlled, No redness/swelling at site. Pressure dressing applied. Administered Medications: No medications were administered Outcome: 19:02 Discharge ordered by . ma2 19:24 Discharged to home ambulatory, with family. em 19:24 Condition: stable 19:24 Discharge instructions given to patient, family, Instructed on discharge instructions, follow up and referral plans. medication usage, Demonstrated understanding of instructions, follow-up care, medications, Prescriptions given X 1. 19:25 Patient left the ED. em Signatures: Dispatcher [employer] Sabra Wright, RN RN Rad Buck, RN Diane Balbuena ds1 Maria Del Carmen Hall MD MD maTri Mccabe, MIRNA RN ap3 Leonie De RN RN kg
--- NOTE | 2021-04-30 19:03 | EDPHYS ---
Physician Documentation [facility] Name: Elias Harvey Age: 61 yrs Sex: Male : 1960 Arrival Date: 04/30/2021 Time: 15:26 Bed 6 Private MD: ED Physician Maria Del Carmen Hall HPI: 04/30 18:19 This 61 yrs old Male presents to ER via Ambulatory with complaints of L Side ma2 Swelling. 18:19 The patient or guardian complains of pain, swelling. The complaints affect the left ma2 hand. Onset: The symptoms/episode began/occurred gradually, 3 week(s) ago. Associated signs and symptoms: Pertinent positives: pain, swelling, Pertinent negatives: erythema, numbness, vomiting. Severity of symptoms: At their worst the symptoms were mild, in the emergency department the symptoms are unchanged. The patient has not experienced similar symptoms in the past. Patient had a stroke, a month ago, with residual left-sided weakness is here with left hand swelling over the last 3 weeks that is getting worse, there is also mild pain on the left hand, no hand trauma no redness or increased warmth,. Historical: - Allergies: 16:56 No Known Allergies; kg - Home Meds: 16:59 Eliquis 5 mg oral tab 1 tab 2 times per day [Active]; Clonidine 0.3 mg patch Oral daily kg [Active]; carvedilol 6.25 mg oral tab 1 tab 2 times per day [Active]; metformin 500 mg Oral tab 1 tab 2 times per day [Active]; lisinopril 20 mg Oral tab 1 tab BID [Active]; famotidine 20 mg Oral tab 2 tabs once daily [Active]; atorvastatin 80 mg oral tab 1 tab once daily [Active]; amlodipine 5 mg tab 1 tab once daily [Active]; Humulin N Pen 100 unit/mL (3 mL) Sub-Q inpn after meals [Active]; - PMHx: 16:56 Diabetes mellitus; Hypertensive disorder; kg 16:57 CVA; kg - PSHx: 16:57 None; kg - Immunization history:: Adult Immunizations not up to date, Client reports receiving the 2nd dose of the Covid vaccine, Date received: February 06, 2021. - Social history:: Smoking status: Patient denies any tobacco usage or history of. Patient uses alcohol, occasionally. - Family history:: not pertinent. ROS: 18:19 Constitutional: Negative for fever, chills, and weight loss. ma2 18:19 All other systems are negative. Exam: 18:19 Constitutional: This is a well developed, well nourished patient who is awake, alert, ma2 and in no acute distress. Head/Face: Normocephalic, atraumatic. Eyes: Pupils equal round and reactive to light, extra-ocular motions intact. Lids and lashes normal. Conjunctiva and sclera are non-icteric and not injected. Cornea within normal limits. Periorbital areas with no swelling, redness, or edema. ENT: Nares patent. No nasal discharge, no septal abnormalities noted. Tympanic membranes are normal and external auditory canals are clear. Oropharynx with no redness, swelling, or masses, exudates, or evidence of obstruction, uvula midline. Mucous membranes moist. Neck: Trachea midline, no thyromegaly or masses palpated, and no cervical lymphadenopathy. Supple, full range of motion without nuchal rigidity, or vertebral point tenderness. No Meningismus. Chest/axilla: Normal chest wall appearance and motion. Nontender with no deformity. No lesions are appreciated. Cardiovascular: Regular rate and rhythm with a normal S1 and S2. No gallops, murmurs, or rubs. Normal PMI, no JVD. No pulse deficits. Respiratory: Lungs have equal breath sounds bilaterally, clear to auscultation and percussion. No rales, rhonchi or wheezes noted. No increased work of breathing, no retractions or nasal flaring. Abdomen/GI: Soft, non-tender, with normal bowel sounds. No distension or tympany. No guarding or rebound. No evidence of tenderness throughout. Back: No spinal tenderness. No costovertebral tenderness. Full range of motion. Skin: Warm, dry with normal turgor. Normal color with no rashes, no lesions, and no evidence of cellulitis. MS/ Extremity: Left hand is mildly edematous, there is no tenderness, all joints are with full range of motion, there is no warmth or induration, pulses are intact, swelling does not extend beyond the wrist, otherwise pulses equal, no cyanosis. Neurovascular intact. Full, normal range of motion. Neuro: Awake and alert, GCS 15, oriented to person, place, time, and situation. Cranial nerves II-XII grossly intact. Motor strength 5/5 in both right extremities. And 3 out of 5 on the left upper and lower extremity, sensory grossly intact. Cerebellar exam normal. Patient use walker and gait Not tested Vital Signs: 16:52 BP 204 / 90; Pulse 77; Resp 20; Temp 98.5(O); Pulse Ox 100% on R/A; Weight 75.02 kg kg (M); Height 5 ft. 3 in. (160.02 cm) (R); Pain 8/10; 16:59 BP 186 / 85; kg 17:15 BP 168 / 83; Pulse 77; Resp 20; Pulse Ox 100% ; sv 18:15 BP 156 / 72; Pulse 63; Resp 20; Pulse Ox 99% ; sv 18:53 BP 154 / 70; Pulse 66; Resp 19; Pulse Ox 100% on R/A; ap3 16:52 Body Mass Index 29.30 (75.02 kg, 160.02 cm) kg MDM: 18:19 Differential diagnosis: contusion, abrasion, tendonitis, Left hand edema is likely ma2 because of the hand is weak and not being moved, it is on gravity dependent area, that could have lead to mild edema. Cellulitis is unlikely as there is no redness tenderness or warmth, will get a ultrasound venous Doppler study to rule out DVT. If that is negative will recommend hand elevation and PCP follow-up for further management. Data reviewed: vital signs, nurses notes. Counseling: I had a detailed discussion with the patient and/or guardian regarding: the historical points, exam findings, and any diagnostic results supporting the discharge/admit diagnosis, the presence of at least one elevated blood pressure reading (>120/80) during this emergency department visit, the need for outpatient follow up. Counseling: I had a detailed discussion with the patient and/or guardian regarding: Of note patient had a stroke and was discharged less than a month ago, he was prescribed blood pressure medicine steroid along with Eliquis, however he is not taking Eliquis because he does not like blood thinners. I recommend he talk with his PCP and discuss his thoughts, as he may at least need to take aspirin if he opted not to take the Eliquis. He understand risk-benefit, and he will discuss this with his PCP, I offered to prescribe aspirin however patient declined. Patient also does not take his insulin, he states he eats healthy. I recommend he also have a discussion and express his point of view with his PCP.. Response to treatment: the patient's symptoms have markedly improved after treatment. 19:02 Patient medically screened. ma2 04/30 17:23 Order name: CBC with Diff ma2 04/30 17:23 Order name: CMP ma2 04/30 17:53 Order name: UPPER EXTREMITY VENOUS UNILATE EDMS Administered Medications: No medications were administered Disposition Summary: 04/30/21 19:02 Discharge Ordered Location: Home ma2 Condition: Stable ma2 Diagnosis - Pain in left hand ma2 Followup: ma2 - With: Private Physician - When: Tomorrow - Reason: Continuance of care Discharge Instructions: - Discharge Summary Sheet ma2 - Musculoskeletal Pain ma2 - Hand Exercises ma2 Forms: - Medication Reconciliation Form ma2 - Thank You Letter ma2 - Antibiotic Education ma2 - Prescription Opioid Use ma2 Prescriptions: - Diclofenac Sodium 75 mg Oral Tablet Sustained Release - take 1 tablet by ORAL route 2 times per day; 30 tablet; Refills: 0, Product ma2 Selection Permitted Signatures: Dispatcher [employer] EDMS Maria Del Carmen Hall MD MD ma2 Leonie De RN RN kg Corrections: (The following items were deleted from the chart) 17:53 17:24 Extremity Venous Uni [email or web address] ordered. EDIL EDMS 18:33 18:19 Constitutional: This is a well developed, well nourished patient who is awake, ma2 alert, and in no acute distress. Head/Face: Normocephalic, atraumatic. Eyes: Pupils equal round and reactive to light, extra-ocular motions intact. Lids and lashes normal. Conjunctiva and sclera are non-icteric and not injected. Cornea within normal limits. Periorbital areas with no swelling, redness, or edema. ENT: Nares patent. No nasal discharge, no septal abnormalities noted. Tympanic membranes are normal and external auditory canals are clear. Oropharynx with no redness, swelling, or masses, exudates, or evidence of obstruction, uvula midline. Mucous membranes moist. Neck: Trachea midline, no thyromegaly or masses palpated, and no cervical lymphadenopathy. Supple, full range of motion without nuchal rigidity, or vertebral point tenderness. No Meningismus. Chest/axilla: Normal chest wall appearance and motion. Nontender with no deformity. No lesions are appreciated. Cardiovascular: Regular rate and rhythm with a normal S1 and S2. No gallops, murmurs, or rubs. Normal PMI, no JVD. No pulse deficits. Respiratory: Lungs have equal breath sounds bilaterally, clear to auscultation and percussion. No rales, rhonchi or wheezes noted. No increased work of breathing, no retractions or nasal flaring. Abdomen/GI: Soft, non-tender, with normal bowel sounds. No distension or tympany. No guarding or rebound. No evidence of tenderness throughout. Back: No spinal tenderness. No costovertebral tenderness. Full range of motion. Skin: Warm, dry with normal turgor. Normal color with no rashes, no lesions, and no evidence of cellulitis. MS/ Extremity: Left hand is mildly edematous, there is no tenderness, all joints are with full range of motion, there is no warmth or induration, pulses are intact, swelling does not extend beyond the wrist, otherwise pulses equal, no cyanosis. Neurovascular intact. Full, normal range of motion. Neuro: Awake and alert, GCS 15, oriented to person, place, time, and situation. Cranial nerves II-XII grossly intact. Motor strength 5/5 in all extremities. Sensory grossly intact. Cerebellar exam normal. Normal gait. ma2
[2021-04-30 19:10] LABS: Absolute Lymphocytes (CBC) 2.7 K/uL (0.7-4.9); Basophils % 0.5 % (0-1.3); Lymphocytes % 35.4 % (15.3-44.8); MPV 8.4 fL (7.6-11.3); RBC Red Blood Cell Count 4.13 M/uL (4.33-5.43)
--- NOTE | 2021-04-30 19:16 | RAD REPORT ---
EXAM DESCRIPTION: US - UPPER EXTREMITY VENOUS UNILATE - 04/30/2021 6:36 pm CLINICAL HISTORY: SWELLING COMPARISON: No comparisons FINDINGS: The left IJ, subclavian vein, axillary vein, brachial vein, basilic vein, ulnar vein, and radial vein are all patent and compressible. IMPRESSION: No left upper extremity venous thrombosis.
[2021-04-30 19:20] LABS: Albumin 3.2 g/dL (3.4-5.0); Bilirubin Total 0.3 mg/dL (0.2-1.0); Potassium 4.1 mmol/L (3.5-5.1); Protein, Total 7.6 g/dL (6.4-8.2)
[2021-04-30 19:34] VITALS: TEMP 98.5
[2021-04-30 19:41] VITALS: BP 154/70; O2SAT 100
== END 2021-04-30 19:25 | disposition home or self-care (01) ==
LOC: ER 15:25
DX: M79.642 Pain in left hand (principal); I69.354 Hemiplegia and hemiparesis following cerebral infarction affecting left non-dominant side; I10 Essential (primary) hypertension; E11.9 Type 2 diabetes mellitus without complications; Z79.01 Long term (current) use of anticoagulants; Z79.4 Long term (current) use of insulin
CPT/HCPCS: 36415; 80053; 85025; 93971; 99284

== ENCOUNTER 2021-09-13 08:40 | Day surgery (SDC) | payer BC ==
[2021-09-13] MEDS ORDERED: FENTANYL CITR 100 MCG/2 ML ONE ×2 (08:52→10:44)
[2021-09-13] MEDS ORDERED: LIDOCAINE 2% MPF 5 ML VIAL ONE (08:52)
[2021-09-13] MEDS ORDERED: GLYCOPYRROLATE 0.2 MG/ML SYR ONE ×2 (08:52→09:55)
[2021-09-13] MEDS ORDERED: propofoL 200 MG/20 ML VIAL IV ONE (08:52)
[2021-09-13] MEDS ORDERED: MIDAZOLAM HCL 2 MG/2 ML INJ ONE (08:52)
[2021-09-13] MEDS ORDERED: ROCURONIUM 50 MG/5 ML VIAL IV ONE (08:52)
[2021-09-13] MEDS: NA CHLORIDE 0.9% 1,000 ML ONE ×2 (08:55→09:08)
[2021-09-13] MEDS ORDERED: EPINEPHRINE/PF 1 MG/ML AMP ONE (09:03)
[2021-09-13] MEDS ORDERED: OXYMETAZOLINE HCL 0.05% 15ML NAS ONE (09:26)
[2021-09-13] MEDS ORDERED: LIDOCAINE 1% W/EPI 1:100,000 MDV 20 ML VIAL ONE (09:27)
[2021-09-13] MEDS ORDERED: EPHEDRINE SULF 50 MG/ML VIAL ONE (09:34)
[2021-09-13] MEDS ORDERED: NEOSTIGMINE 1 MG/ML -5 ML ONE (09:56)
[2021-09-13] MEDS ORDERED: dexAMETHasone 10 MG/ML VIAL ONE (09:56)
[2021-09-13] MEDS ORDERED: ONDANSETRON 4 MG/2 ML VIAL ONE (10:01)
[2021-09-13 11:58] VITALS: BP 168/83; O2SAT 99
[2021-09-13 11:59] VITALS: TEMP 97.6
--- NOTE | 2021-09-14 22:28 | OP ---
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 Procedure: Microsuspension direct laryngoscopy with injection of Prolaryn Plus, calcium hydroxyapati te gel into bilateral vocal cords under general anesthesia. Anesthesia: General endotracheal anesthesia was administered. Patient had to be reintubated once du e to cuff being on the original endotracheal tube. Patient tolerated it well. Patient di d not lose any oxygenation due to cuff defect. Specimens: None. Estimated Blood Loss: None. Findings: Severe bilateral vocal cord atrophy. Complications: None. Disposition: Stable. The patient tolerated the procedure well. Indication For Procedure: The patient is a pleasant 61-year-old male who presented to my outpatient clinic with rather severe breathy dysphonia. Laryngoscopic exam revealed significant bilateral vocal cord atrophy with a significant panglottic gap upon maximal vocal projection with direct visualizati on. These are indications to bring the patient to operative suite and that the patient uses his voic e frequently for singing and speaking. He understood. All questions were answered. Risks versus be nefits and complications explained in detail and a consent form was signed and placed in the chart. Description Of Procedure: Patient was transferred from the preoperative holding area to the operativ e suite by Department of Anesthesia, placed on the operating table supine. Sedated and intubated in normal fashion. A rigid nasal endoscope was used for the procedure. After patient was sedated, he was intubated with a #6 endotracheal tube. Apparently, the tube was defective because patient had significant air leak . Thus, he had to be reintubated and this was done successfully very efficiently by our anesthesia s taff. Once intubated, then a mouth guard was placed over the upper teeth for protection. A large la ryngoscope was introduced into the right oral commissure and directed along the endotracheal tube and suspended from the Christianson stand. Patient had nice airway with easy access. A 0 degree rigid nasal en doscope was introduced through the laryngoscope and photodocumentation was obtained. I then injected 1.0 mL of Prolaryn Plus gel into the right vocal cord and 1.0 mL of Prolaryn Plus gel into the left vocal cord. Patient tolerated the procedure well and he had excellent medialization of both vocal co rds, which should help his voice. He will be discharged home for several days of voice rest and will follow up in 1 week or sooner as needed. SHALINI/CLEMENTE Voice ID: [id number] Report ID: [id number]
== END 2021-09-13 11:55 | disposition home or self-care (01) ==
LOC: OR 08:40
PROVIDERS: ATTEND Otolaryngology Facial Plastic Surgery
PROC: 3E0F8GC Introduction of Other Therapeutic Substance into Respiratory Tract, Via Natural or Artificial Opening Endoscopic (ICD-10-PCS; principal; 2021-09-13 10:30)
DX: J38.3 Other diseases of vocal cords (principal); J38.7 Other diseases of larynx; Z20.822 Contact with and (suspected) exposure to COVID-19
CPT/HCPCS: 82947 ×2; 31570; U0003; J2704; J2250; J3010 ×2; J1100; J2710; J7030; J2405; J0171

== ENCOUNTER 2022-01-07 13:52 | Emergency (ER) | payer BC ==
[2022-01-07] MEDS ORDERED: ACETAMINOPHEN 500 MG TAB ONE (15:34)
[2022-01-07] MEDS ORDERED: IBUPROFEN 400 MG TAB ONE (15:34)
[2022-01-07] MEDS ORDERED: FLUORESCEIN SODIUM 1 MG/WRAP ONE (15:34)
[2022-01-07] MEDS ORDERED: TETRACAINE HCL 0.5% 4ML OPTH ONE (15:34)
--- OUTSIDE RECORDS SUMMARY | 2022-01-07 15:52 | XMS REPORT | Continuity of Care Document ---
:1960 Author Organization [facility] t Address [address] [place] [address] Care Team Providers Name Role Phone Vannessa VARGAS Attending Clinician Unavailable NORA CORREA Attending Clinician Unavailable Vannsesa VARGAS Admitting Clinician Unavailable NORA CORREA Admitting Clinician Unavailable Problems This patient has no known problems. Allergies, Adverse Reactions, Alerts This patient has no known allergies or adverse reactions. Medications This patient has no known medications. Procedures This patient has no known procedures. Encounters Start End Encounter Admission Attending Care Care Encounter Source Date/Time Date/Time Type Type Clinicians Facility Department ID 2021-03-20 2021-03-25 Inpatient Karina VARGAS [facility] [id number] [facility] 02:19:00 11:41:00 ALIREZA 2021-03-20 2021-03-20 Outpatient MADELINE [facility] [id number] [facility] 00:00:00 23:59:00 D[place] Results This patient has no known results.
[2022-01-07] MEDS ORDERED: TETANUS & DIPHTHERIA TOX,ADULT 0.5 ML VIAL ONE (15:59)
--- NOTE | 2022-01-07 15:59 | EDPHYS ---
Physician Documentation [facility] Name: Elias Harvey Age: 61 yrs Sex: Male : 1960 Arrival Date: 01/07/2022 Time: 13:53 Bed Treatment Private MD: ED Physician Isacc Mata HPI: 01/07 15:30 This 61 yrs old Male presents to ER via Ambulatory with complaints of Foreign cp Body In Eye. 15:30 The patient is experiencing foreign body sensation, to the left eye, caused by an cp unknown mechanism. Onset: The symptoms/episode began/occurred 2 day(s) ago. Duration: the symptoms are continuous. 15:30 Patient does not utilize any form of vision correction. cp 15:30 Associated signs and symptoms: Pertinent negatives: None. cp 15:30 Patient reports pain, redness and foreign body sensation to right eye started after cp working on car 2 days ago. Historical: - Allergies: 14:33 No Known Allergies; ab2 - PMHx: 14:33 CVA; diabetes mellitus; Hypertensive disorder; ab2 - Immunization history:: Adult Immunizations up to date. - Social history:: Smoking status: Patient denies any tobacco usage or history of. ROS: 15:35 Constitutional: Negative for fever. cp 15:35 Eyes: Positive for foreign body sensation, pain, redness, of the right eye. 15:35 ENT: Negative for drainage from ear(s), ear pain, sore throat, difficulty swallowing, cp difficulty handling secretions. 15:35 Cardiovascular: Negative for chest pain, palpitations. 15:35 Skin: Negative for cellulitis, rash. 15:35 Neuro: Negative for dizziness, headache, weakness. 15:35 All other systems are negative. Exam: 15:40 Constitutional: The patient appears in no acute distress, alert, awake, non-toxic, well cp developed, well nourished, uncomfortable. 15:40 Head/Face: Normocephalic, atraumatic. cp 15:40 Eyes: Periorbital structures: appear normal, Pupils: equal, round, and reactive to light and accomodation, Extraocular movements: intact throughout, Conjunctiva: injected, in the right eye, Corneas: abrasion, that is moderate sized, central cornea, foreign body, a piece of metal, central cornea, a fluorescein strip employed to appreciate the findings, Lids and lashes: appear normal, bilaterally, Visual chad[place]: are intact, Examination of the other eye reveals no obvious gross abnormality. 15:40 ENT: External ear(s): are unremarkable, Nose: is normal, Posterior pharynx: Airway: no evidence of obstruction, patent. 15:40 Cardiovascular: Rate: normal. 15:40 Respiratory: the patient does not display signs of respiratory distress, Respirations: normal. 15:40 Skin: cellulitis, is not appreciated, no rash present. Vital Signs: 14:31 BP 198 / 94; Pulse 73; Resp 17; Temp 98.0; Pulse Ox 98% on R/A; Weight 71.21 kg; Height ab2 5 ft. 3 in. (160.02 cm); Pain 10/10; 16:07 BP 181 / 87; Pulse 55; Resp 16; Pulse Ox 98% on R/A; jb4 14:31 Body Mass Index 27.81 (71.21 kg, 160.02 cm) ab2 Visual Acuity: 15:27 Left Eye Visual acuity 20/50, Pupil size 3 mm, Normal, Reactive To Accomodation; Right jb4 Eye Visual acuity 20/100, Pupil size 3 mm, Normal, Reactive To Accomodation; Both Eyes Visual acuity 20/40; Without Lenses; Procedures: 15:46 Foreign Body Removal: unknown, from the left eye, cornea without use of slit lamp by cp using a cotton-tipped swab, The patient tolerated the removal well. MDM: 14:58 Patient medically screened. cp 15:35 Differential diagnosis: Corneal abrasion of right eye. Foreign body in right eye. cp Infectious conjunctivitis in right eye. 15:58 Data reviewed: vital signs, nurses notes. cp 15:58 Counseling: I had a detailed discussion with the patient and/or guardian regarding: the cp historical points, exam findings, and any diagnostic results supporting the discharge/admit diagnosis, the need for outpatient follow up, an opthalmologist, to return to the emergency department if symptoms worsen or persist or if there are any questions or concerns that arise at home. Response to treatment: the patient's symptoms have markedly improved after treatment, and as a result, I will discharge patient. 01/07 15:26 Order name: Eye Tray; Complete Time: 15:34 cp 01/07 15:26 Order name: Fluoresene Opth strip; Complete Time: 15:34 cp 01/07 15:26 Order name: Visual Acuity; Complete Time: 15:27 cp 01/07 16:01 Order name: Blood Pressure Recheck; Complete Time: 16:08 cp Administered Medications: 15:34 Drug: Ibuprofen 800 mg Route: PO; jb4 16:00 Follow up: Response: No adverse reaction; Marked relief of symptoms; Pain is decreased jb4 15:34 Drug: Tylenol 1000 mg Route: PO; jb4 16:00 Follow up: Response: No adverse reaction; Marked relief of symptoms; Pain is decreased jb4 15:45 Drug: Tetracaine Drops 0.5 % 1 drops {Note: Administered by ER provider.} Route: jb4 Ophthalmic; Site: right eye; 15:59 Drug: Tetanus-Diphtheria Toxoid Adult 0.5 ml {Staff Counsel: [employer]. Exp: jb4 02/26/2023. Lot #: [id number]. } Route: IM; Site: left deltoid; 16:26 Follow up: Response: No adverse reaction jb4 16:18 Drug: Gentamicin Drops 0.3 % 1 drops Route: Ophthalmic; Site: right eye; jb4 Disposition: 01/08 08:57 Co-signature as Attending Physician, Isacc Mata MD. rn 08:58 I agree with the assessment and plan of care. Attestation: The patient's history, exam rn findings, diagnostics, and a summary of any interventions or procedures was reviewed in detail with Severino STEEN. Disposition Summary: 01/07/22 15:59 Discharge Ordered Location: Home cp Problem: new cp Symptoms: have improved cp Condition: Stable cp Diagnosis - Foreign body in cornea, right eye, initial encounter cp Followup: cp - With: Brenton Pacheco MD - When: 1 - 2 days - Reason: Recheck today's complaints Followup: cp - With: Brenton Pacheco MD - When: 2 - 3 days - Reason: Recheck today's complaints Discharge Instructions: - Discharge Summary Sheet cp - Corneal Abrasion cp - Eye Foreign Body cp - How to Take Your Blood Pressure cp Forms: - Medication Reconciliation Form cp - Thank You Letter cp - Antibiotic Education cp - Prescription Opioid Use cp Prescriptions: - Gentamicin 0.3 % Ophthalmic Drops - instill 1 drop by OPHTHALMIC route every 4 hours for 7 days; 1 bottle; Refills: cp 0, Product Selection Permitted Signatures: Isacc Mata MD MD rn Severino Atkins PA PA cp Bryson, James RN RN jb4 Eulalio Kirkland Corrections: (The following items were deleted from the chart) 01/07 15:48 15:30 Onset: The symptoms/episode began/occurred today, cp cp 01/08 03:14 01/07 15:00 Eyes: Positive for foreign body sensation, pain, redness, of the right eye, cp cp 01/08 03:14 01/07 15:00 Constitutional: Negative for fever, cp cp
--- NOTE | 2022-01-07 15:59 | ER ---
Nurse's Notes [facility] Name: Elias Harvey Age: 61 yrs Sex: Male : 1960 Arrival Date: 01/07/2022 Time: 13:53 Bed Treatment Private MD: Diagnosis: Foreign body in cornea, right eye, initial encounter Presentation: 01/07 14:31 Chief complaint: Spouse and/or significant other states: "He was working on the car 2 ab2 days ago and since then has been having right eye pain and redness. I think something is stuck in it." Pt states he tried flushing eye out at home with water with no success. Coronavirus screen: Vaccine status: Patient reports receiving the 2nd dose of the covid vaccine. Client denies travel out of the [place] in the last 14 days. At this time, the client does not indicate any symptoms associated with coronavirus-19. Ebola Screen: Patient negative for fever greater than or equal to 101.5 degrees Fahrenheit, and additional compatible Ebola Virus Disease symptoms Patient denies exposure to infectious person. Patient denies travel to an Ebola-affected area in the 21 days before illness onset. No symptoms or risks identified at this time. Initial Sepsis Screen: Does the patient meet any 2 criteria? No. Patient's initial sepsis screen is negative. Does the patient have a suspected source of infection? No. Patient's initial sepsis screen is negative. Risk Assessment: Do you want to hurt yourself or someone else? Patient reports no desire to harm self or others. Onset of symptoms is unknown. 14:31 Method Of Arrival: Ambulatory ab2 14:31 Acuity: MULU 4 ab2 Triage Assessment: 14:33 General: Appears in no apparent distress. uncomfortable, Behavior is calm, cooperative, ab2 appropriate for age. Pain: Complains of pain in right eye Pain currently is 10 out of 10 on a pain scale. EENT: Reports pain in right eye since 2 days. Neuro: Level of Consciousness is awake, alert, obeys commands, Oriented to person, place, time, situation, Appropriate for age. Cardiovascular: No deficits noted. Respiratory: Airway is patent Respiratory effort is even, unlabored, Respiratory pattern is regular, symmetrical. GI: No deficits noted. Historical: - Allergies: 14:33 No Known Allergies; ab2 - PMHx: 14:33 CVA; diabetes mellitus; Hypertensive disorder; ab2 - Immunization history:: Adult Immunizations up to date. - Social history:: Smoking status: Patient denies any tobacco usage or history of. Screenin:34 Abuse screen: Denies threats or abuse. Nutritional screening: No deficits noted. jb4 Tuberculosis screening: No symptoms or risk factors identified. 15:34 Fall Risk None identified. jb4 Assessment: 15:34 General: Appears in no apparent distress. uncomfortable, Behavior is calm, cooperative, jb4 appropriate for age. Pain: Complains of pain in right eye Pain does not radiate. Pain currently is 10 out of 10 on a pain scale. Neuro: Level of Consciousness is awake, alert, obeys commands, Oriented to person, place, time, situation. Cardiovascular: Patient's skin is warm and dry. Respiratory: Airway is patent Respiratory effort is even, unlabored, Respiratory pattern is regular, symmetrical. Musculoskeletal: Circulation, motion, and sensation intact. Range of motion: intact in all extremities. 16:26 Reassessment: Patient appears in no apparent distress at this time. Patient and/or jb4 family updated on plan of care and expected duration. Pain level reassessed. Patient is alert, oriented x 3, equal unlabored respirations, skin warm/dry/pink. Pt reports not taking his morning B/p medication due to thinking he would have to take medication at the ER. instructed pt to take his medications as prescribed unless told otherwise by PCP. Vital Signs: 14:31 BP 198 / 94; Pulse 73; Resp 17; Temp 98.0; Pulse Ox 98% on R/A; Weight 71.21 kg; Height ab2 5 ft. 3 in. (160.02 cm); Pain 10/10; 16:07 BP 181 / 87; Pulse 55; Resp 16; Pulse Ox 98% on R/A; jb4 14:31 Body Mass Index 27.81 (71.21 kg, 160.02 cm) ab2 Visual Acuity: 15:27 Left Eye Visual acuity 20/50, Pupil size 3 mm, Normal, Reactive To Accomodation; Right jb4 Eye Visual acuity 20/100, Pupil size 3 mm, Normal, Reactive To Accomodation; Both Eyes Visual acuity 20/40; Without Lenses; ED Course: 13:53 Patient arrived in ED. as 14:32 Triage completed. ab2 14:34 Arm band placed on right wrist. ab2 14:56 Severino Atkins PA is PHCP. cp 14:56 Isacc Mata MD is Attending Physician. cp 15:08 Rancho Valladares, RN is Primary Nurse. jb4 15:34 Patient has correct armband on for positive identification. Bed in low position. Call jb4 light in reach. Side rails up X 1. Pulse ox on. NIBP on. 15:34 No provider procedures requiring assistance completed. Patient did not have IV access jb4 during this emergency room visit. 15:57 Brenton Pacheco MD is Referral Physician. cp 15:57 Referral Physician role handed off by Brenton Pacheco MD cp 15:57 Brenton Pacheco MD is Referral Physician. cp Administered Medications: 15:34 Drug: Ibuprofen 800 mg Route: PO; jb4 16:00 Follow up: Response: No adverse reaction; Marked relief of symptoms; Pain is decreased jb4 15:34 Drug: Tylenol 1000 mg Route: PO; jb4 16:00 Follow up: Response: No adverse reaction; Marked relief of symptoms; Pain is decreased jb4 15:45 Drug: Tetracaine Drops 0.5 % 1 drops {Note: Administered by ER provider.} Route: jb4 Ophthalmic; Site: right eye; 15:59 Drug: Tetanus-Diphtheria Toxoid Adult 0.5 ml {Sales Property Manager: [employer]. Exp: jb4 02/26/2023. Lot #: [id number]. } Route: IM; Site: left deltoid; 16:26 Follow up: Response: No adverse reaction jb4 16:18 Drug: Gentamicin Drops 0.3 % 1 drops Route: Ophthalmic; Site: right eye; jb4 Outcome: 15:59 Discharge ordered by MD. cp 16:28 Discharged to home ambulatory, with family. jb4 16:28 Condition: stable 16:28 Discharge instructions given to patient, family, Instructed on discharge instructions, follow up and referral plans. medication usage. 16:28 Patient left the ED. jb4 Signatures: Luna Armstrong as Severino Atkins PA PA cp [place]o Valladares, RN RN jb4 Eulalio Kirkland ab2 Corrections: (The following items were deleted from the chart) 14:34 14:31 Pulse 73bpm; Resp 17bpm; Pulse Ox 98% RA; Temp 98.0F; 71.21 kg; Height 5 ft. 3 ab2 in.; BMI: 27.8; Pain 10/10; ab2
[2022-01-07] MEDS ORDERED: GENTAMICIN 0.3% OPTH DROP 5ML ONE (16:12)
[2022-01-07 17:08] VITALS: TEMP 98; O2SAT 98
[2022-01-07 17:09] VITALS: BP 181/87
== END 2022-01-07 16:28 | disposition home or self-care (01) ==
LOC: ER 13:52
PROC: 08C9XZZ Extirpation of Matter from Left Cornea, External Approach (ICD-10-PCS; principal; 2022-01-07)
DX: T15.02XA Foreign body in cornea, left eye, initial encounter (principal); I10 Essential (primary) hypertension; E11.9 Type 2 diabetes mellitus without complications; Z23 Encounter for immunization; Z86.73 Personal history of transient ischemic attack (TIA), and cerebral infarction without residual deficits
CPT/HCPCS: 90471; 90714; 99283